=== PATIENT | male | born 1950 | race Caucasian/White ===

== ENCOUNTER 2018-01-20 01:23 | Emergency (ER) | payer MEDICARE ==
[~2018-01-20] VITALS: Ht 190.5 cm; Wt 145.1 kg
[~2018-01-20 01:23] MED LIST: AMLO10TA6 PO; ATOR80TA PO; CARV25TA PO; DIGO250T PO; FINA5TAB11 PO; FLUO-120 PO; FURO40TA5 PO; HYDR50TA8 PO; LISI-603 PO; METF1000 PO; METO-358 PO; METO5TAB7 PO; POTA20TA29 PO; SPIR25TA PO; TAMS0.4C34 PO
--- NOTE | 2018-01-20 01:35 | NUR ---
PT TO ER BED 12. BBRA 102 FROM HOME C/C ALTERED MORE THAN NORMAL. PER PT "RESPONDING SLOWER THAN NORMAL". BS IN FIELD 66. 250CC D10 GIVEN. PT AAOX4. PT PLACED IN GOWN AND ON COMPOSITE LAMINATOR. PT VSS/NAD NOTED/RESP EVEN UNLABORED/SKIN WARM AND DRY/DENIES N-V-D/AFEBRILE. AWAITING MD MUSA. AT BEDSIDE.
--- NOTE | 2018-01-20 01:58 | NUR ---
URINE SPECIMEN OBTAINED AND SENT TO THE LAB.
--- NOTE | 2018-01-20 02:01 | NUR ---
LAB AT BEDSIDE FOR DRAW.
--- NOTE | 2018-01-20 02:06 | NUR ---
EMT AT BEDSIDE FOR EKG.
[2018-01-20 02:25] LABS: APPEARANCE,URINE CLEAR (CLEAR); BILIRUBIN,URINE NEGATIVE (NEGATIVE); BLOOD, URINE 1+ Ery/uL (NEGATIVE); COLOR,URINE YELLOW (YELLOW); KETONES,URINE NEGATIVE (NEGATIVE); LEUKOCYTE ESTERASE ,URINE NEGATIVE (NEGATIVE); NITRITE, URINE NEGATIVE (NEGATIVE); PH,URINE 5.5 (5.0-8.0); PROTEIN,URINE 2+ mg/dl (NEGATIVE); UGLUCOSE TRACE mg/dL (NEGATIVE); UROBILINOGEN,URINE 0.2 EU/dL (0.2)
[2018-01-20 02:27] LABS: BASOPHILS % (AUTO) 0.3 % (0.0-2.0); EOSINOPHILS % (AUTO) 1.7 % (0.0-6.0); HEMATOCRIT 44 % (39-51); HEMOGLOBIN 14.7 g/dL (13.5-17.5); LYMPHOCYTES # (AUTO) 1.4 /CMM (0.8-4.8); LYMPHOCYTES % (AUTO) 10.1 % (20.0-44.0); MEAN CORPUSCULAR HGB CONC 33 g/dl (31.0-36.0); MEAN CORPUSCULAR VOLUME 98 fL (80-96); MONOCYTES # (AUTO) 1.2 /CMM (0.1-1.30); MONOCYTES % (AUTO) 8.4 % (2.0-12.0); NEUTROPHILS # (AUTO) 10.9 /CMM (1.8-8.9); NEUTROPHILS % (AUTO) 79.5 % (43.0-81.0); PLATELET COUNT (AUTO) 249 /CMM (150-450); RDW COEFFICIENT OF VARIATION 14.5 (11.5-15.0); RED BLOOD CELL COUNT(AUTO) 4.55 MIL/uL (4.5-6.0); WHITE BLOOD COUNT (AUTO) 13.7 K/uL (4.3-11.0)
[2018-01-20 02:32] LABS: BACTERIA,URINE Rare /HPF (None Seen); SQUAMOUS EPITHELIAL CELL,UR Rare /HPF (None Seen); WBC,URINE 0-2 /HPF (0-3)
[2018-01-20 02:39] LABS: INR 1.6 (0.87-1.13)
[2018-01-20 02:43] LABS: SERUM AMMONIA 3 umol/L (11-32)
[2018-01-20 02:58] LABS: ALANINE AMINOTRANSFERASE 26 U/L (12-78); ALBUMIN 3.7 g/dL (3.4-5.0); ALCOHOL, BLOOD < 3 mg/dL (0-0); ALKALINE PHOSPHATASE 125 U/L (46-116); ASPARTATE AMINOTRANSFERASE 19 U/L (15-37); BILIRUBIN,DIRECT 0.1 mg/dL (0.0-0.2); BILIRUBIN,TOTAL 0.4 mg/dL (0.2-1.0); CALCIUM, SERUM 9.3 mg/dL (8.5-10.1); CARBON DIOXIDE 25 mmol/L (21-32); CHLORIDE 100 mmol/L (98-107); CREATININE 1.1 mg/dL (0.6-1.3); GLUCOSE 120 mg/dL (74-106); POTASSIUM 4.2 mmol/L (3.5-5.1); SODIUM SERUM 136 mmol/L (136-145); TOTAL PROTEIN, SERUM 8.1 g/dL (6.4-8.2); UREA NITROGEN, BLOOD 13 mg/dL (7-18)
[2018-01-20 03:12] LABS: SALICYLATE 1.7 mg/dL (2.8-20.0)
[2018-01-20 03:14] LABS: THYROID STIMULATING HORMONE 4.209 uIU/mL (0.358-3.74)
[2018-01-20 03:15] LABS: TROPONIN I < 0.017 ng/mL (0.00-0.056)
--- NOTE | 2018-01-20 03:19 | NUR ---
PT AOX4 SPEAKING WITH AT BEDSIDE.
--- NOTE | 2018-01-20 03:36 | NUR ---
Patient discharged with to home in stable condition. Written and verbal after care instructions given. Patient verbalizes understanding of instruction. Patient is awake and alert to self, day, and place.
[2018-01-20 03:37] VITALS: BP 134/77
== END 2018-01-20 03:37 | disposition home or self-care (01) ==
LOC: ER 01:25
DX: E11.649 Type 2 diabetes mellitus with hypoglycemia without coma (principal); I48.91 Unspecified atrial fibrillation; D68.8 Other specified coagulation defects; E66.8 Other obesity; I10 Essential (primary) hypertension; Z79.84 Long term (current) use of oral hypoglycemic drugs; Z79.01 Long term (current) use of anticoagulants
CPT/HCPCS: 36415; 71045-TC; 80048-TC; 80076-TC; 81000-TC; 82140-TC; 82962-TC; 84443-TC; 84484-TC; 85025-TC; 85610-TC; A4606; G0480; Z7610

== ENCOUNTER 2019-04-27 13:12 | Inpatient (IN) | payer MEDICARE ==
[~2019-04-27] VITALS: Ht 190.5 cm; Wt 156.5 kg
[~2019-04-27 13:12] MED LIST changes: -AMLO10TA6 PO; +AMLO10TA7 PO
--- NOTE | 2019-04-27 13:15 | NUR ---
"[id number], FROM HOME, BILATERAL LOWER EXTREMITIES WOUND" PT AAOX4, -SOB, NAD NOTED, VSS, PENDING MD MUSA
[2019-04-27 14:19] LABS: BASOPHILS % (AUTO) 0.5 % (0.0-2.0); EOSINOPHILS % (AUTO) 5.1 % (0.0-6.0); HEMATOCRIT 31 % (39-51); HEMOGLOBIN 10.1 g/dL (13.5-17.5); LYMPHOCYTES # (AUTO) 0.7 /CMM (0.8-4.8); LYMPHOCYTES % (AUTO) 7.8 % (20.0-44.0); MEAN CORPUSCULAR HGB CONC 32 g/dl (31.0-36.0); MEAN CORPUSCULAR VOLUME 87 fL (80-96); MONOCYTES # (AUTO) 1.1 /CMM (0.1-1.30); MONOCYTES % (AUTO) 11.4 % (2.0-12.0); NEUTROPHILS % (AUTO) 75.2 % (43.0-81.0); PLATELET COUNT (AUTO) 337 /CMM (150-450); WHITE BLOOD COUNT (AUTO) 9.4 K/uL (4.3-11.0)
[2019-04-27 14:29] LABS: CALCIUM, SERUM 8.9 mg/dL (8.5-10.1); CARBON DIOXIDE 22 mmol/L (21-32); CHLORIDE 105 mmol/L (98-107); CREATININE 1.8 mg/dL (0.6-1.3); GLUCOSE 165 mg/dL (74-106); POTASSIUM 5.9 mmol/L (3.5-5.1); SODIUM SERUM 136 mmol/L (136-145); UREA NITROGEN, BLOOD 32 mg/dL (7-18)
[2019-04-27 14:36] LABS: ALANINE AMINOTRANSFERASE 23 U/L (12-78); ALBUMIN 2.6 g/dL (3.4-5.0); ALKALINE PHOSPHATASE 149 U/L (46-116); ASPARTATE AMINOTRANSFERASE 27 U/L (15-37); BILIRUBIN,DIRECT 0.2 mg/dL (0.0-0.2); BILIRUBIN,TOTAL 0.4 mg/dL (0.2-1.0)
--- NOTE | 2019-04-27 14:49 | NUR ---
REPORT FROM JAJA PATIENT HAS INR OF 4.5, DR. CHEN NOTIFIED.
--- NOTE | 2019-04-27 15:06 | NUR ---
CALLED [facility], PAGED PANEL
[2019-04-27 15:11] LABS: APPEARANCE,URINE Clear (CLEAR); BILIRUBIN,URINE Negative (NEGATIVE); BLOOD, URINE Trace-intact Ery/uL (NEGATIVE); COLOR,URINE Yellow (YELLOW); KETONES,URINE Negative (NEGATIVE); LEUKOCYTE ESTERASE ,URINE Negative (NEGATIVE); NITRITE, URINE Negative (NEGATIVE); PH,URINE 5.5 (5.0-8.0); PROTEIN,URINE 100 mg/dl (NEGATIVE); UGLUCOSE Negative (NEGATIVE); UROBILINOGEN,URINE 0.2 EU/dL (0.2)
[2019-04-27] MEDS ORDERED: METO25TA3 PO (15:25)
[2019-04-27] MEDS ORDERED: FAMO20TA8 PO (15:25)
[2019-04-27] MEDS ORDERED: INSU100I26 SQ (15:25)
[2019-04-27] MEDS ORDERED: INSU100C10 SQ (15:25)
[2019-04-27] MEDS ORDERED: BISA10SU11 RC (15:25)
[2019-04-27] MEDS ORDERED: INSU3INS8 SQ (15:25)
[2019-04-27] MEDS ORDERED: GLUC1KIT2 IJ (15:25)
[2019-04-27] MEDS ORDERED: EPOE200014 IJ (15:25)
[2019-04-27] MEDS ORDERED: MAGN400O6 PO (15:25)
[2019-04-27] MEDS ORDERED: PANT40TA2 PO (15:25)
[2019-04-27] MEDS ORDERED: MULT-439 PO (15:25)
[2019-04-27] MEDS ORDERED: ACET-868 PO (15:25)
[2019-04-27] MEDS ORDERED: HYDR-4384 PO (15:25)
[2019-04-27] MEDS ORDERED: ASPI-605 PO (15:25)
--- NOTE | 2019-04-27 15:26 | NUR ---
CALLED NURSING SUP FOR MEDSURG BED
[2019-04-27 15:32] LABS: BACTERIA,URINE None seen /HPF (None Seen); SQUAMOUS EPITHELIAL CELL,UR None Seen /HPF (None Seen)
[2019-04-27 15:33] LABS: MUCUS,URINE Rare /LPF (None Seen)
--- NOTE | 2019-04-27 15:41 | NUR ---
311 GIVEN. SHITAL IS RN
--- NOTE | 2019-04-27 15:48 | NUR ---
REPORT GIVEN TO SHITAL ÁLVAREZ
[2019-04-27 16:00] VITALS: BP 134/71
[2019-04-27 16:30] VITALS: BP 134/71
[2019-04-27] MEDS ORDERED: MORPHINE SULFATE INJ 2 MG/ML DISP.SYRIN IV PRN (16:30)
[2019-04-27] MEDS ORDERED: DEXTROSE 50%-WATER 50 ML DISP.SYRIN IV PRN (16:30)
[2019-04-27] MEDS ORDERED: MAG HYDROX/AL HYDROX/SIMETH 30 ML UDC PO PRN (16:30)
[2019-04-27] MEDS ORDERED: ONDANSETRON HCL/PF 4 MG/2 ML VIAL IVP PRN (16:30)
[2019-04-27] MEDS ORDERED: ZOLPIDEM TARTRATE 5 MG TABLET PO PRN (16:30)
[2019-04-27] MEDS ORDERED: HYDROCODONE/APAP 5/325MG 1 EACH TABLET PO PRN (16:30)
[2019-04-27] MEDS ORDERED: MAGNESIUM HYDROXIDE 30 ML UDC PO PRN (16:30)
[2019-04-27] MEDS ORDERED: ACETAMINOPHEN 325 MG TABLET PO PRN (16:30)
[2019-04-27] MEDS ORDERED: Z GUARD REMEDY 2 OZ OINT TP PRN (16:30)
[2019-04-27] MEDS ORDERED: BISACODYL SUPP (10 MG) 10 MG/SUPP.RECT SUPP.RECT RC PRN (16:30)
--- NOTE | 2019-04-27 16:30 | NUR ---
MS HOT PACKER NOTE PT ARRIVED TO MS UNIT VIA GURNEY IN STABLE CONDITION. PT IS A/O X4, AFEBRILE. RESPIRATIONS ARE EVEN AND UNLABORED, NOT IN ANY ACUTE DISTRESS NOTED. PUPILS ARE REACTIVE TO LIGHT, BILATERAL HAND BABCOCK TESTER ARE STRONG AND EQUAL. PT DENIES ANY PAIN AT THIS TIME, NO C/O SOB, N/V. ABDOMEN IS ROUND, SOFT AND NONDISTENDED, BOWEL SOUNDS ARE PRESENT IN ALL 4 QUADRANTS UPON AUSCULTATION. DENIES ANY BLADDER DISCOMFORT. SCABS AND ABRASIONS NOTED TO LLE, WOUND NOTED TO LEFT FOOT, SCABS TO RLE, SCRATCHES TO R ARM, REDNESS TO ABDOMINAL FOLD. PICTURES PLACED IN CHART. IV ACCESS TO RIGHT HAND G20 INTACT, NO INFILTRATION NOTED. DRESSING KEPT CLEAN AND DRY. SAFETY MEASURES ARE IN PLACE. DR. LEY MADE AWARE OF ADMISSION W/ ORDERS NOTED AND CARRIED OUT. INSTRUCTED PT TO USE CALL LIGHT WHEN ASSISTANCE IS NEEDED, CALL LIGHT IS LEFT WITHIN REACH. WILL MONITOR THROUGHOUT SHIFT FOR CONTINUITY OF CARE.
[2019-04-27] MEDS ORDERED: SODIUM POLYSTYRENE SULFONATE 15 G/60 ML BOTTLE PO ONE (17:00)
[2019-04-27] MEDS: BLOOD SUGAR DIAGNOSTIC 1 EACH STRIP VI SCH ×2 (17:44→21:18)
[2019-04-27] MEDS: *INSULIN REGULAR(HUMULIN R)HUM 100 UNIT/ML VIAL SQ PRN ×2 (17:45→21:45)
--- NOTE | 2019-04-27 18:49 | NUR ---
HOG SAWYER CLOSING NOTES ALL DUE MEDS GIVEN, NEEDS MET AND RENDERED. PT IS A/O X4, AFEBRILE. RESPIRATIONS ARE EVEN AND UNLABORED, NOT IN ANY ACUTE DISTRESS NOTED. PT DENIES ANY PAIN AT THIS TIME, NO C/O SOB, N/V. IV SITE TO R HAND INTACT, NO INFILTRATION NOTED. DRESSING KEPT CLEAN AND DRY. SAFETY MEASURES ARE IN PLACE. REMINDED PT TO USE CALL LIGHT WHEN ASSISTANCE IS NEEDED, CALL LIGHT IS LEFT WITHIN REACH. WILL ENDORSE TO NEXT SHIFT FOR CONTINUITY OF CARE.
--- NOTE | 2019-04-27 19:40 | NUR ---
MS RN NOTE: PATIENT RESTING IN BED, NO ACUTE DISTRESS NOTED. BREATHING EVEN AND UNLABORED, NO SOB NOTED. IV TO LEFT HAND IN PLACE. NO S/S OF HYPER/HYPOGLYCEMIA NOTED. BED LOCKED AND IN LOWEST POSITION, CALL LIGHT IN REACH. WILL CONTINUE TO MONITOR.
[2019-04-27 20:00] VITALS: BP 135/77
[2019-04-27] MEDS: FAMOTIDINE (20 MG) 20 MG TABLET PO SCH (21:18)
--- NOTE | 2019-04-27 22:00 | NUR ---
MS RN NOTE: PATIENT BLOOD SUGAR LEVEL 138MG/DL, PATIENT TO RECEIVE 2 UNITS OF INSULIN PER SLIDING SCALE. NO S/S OF HYPER/HYPOGLYCEMIA NOTED. WILL CONTINUE TO MONITOR.
[2019-04-28] MEDS: INSULIN REGULAR, HUMAN 100 UNIT/ML 3 ML VIAL SQ PRN ×2 (06:13→17:38)
--- NOTE | 2019-04-28 06:30 | NUR ---
MS RN NOTE: PATIENT RESTING IN BED, NO ACUTE DISTRESS NOTED. BREATHING EVEN AND UNLABORED, NO SOB NOTED. IV TO LEFT HAND IN PLACE. PATIENT BLOOD SUGAR LEVEL 141MG/DL, PATIENT TO RECEIVE 2 UNITS PER SLIDING SCALE, NO S/S OF HYPER/HYPOGLYCEMIA NOTED. BED LOCKED AND IN LOWEST POSITION, CALL LIGHT IN REACH. WILL ENDORSE TO DAY NURSE TO CONTINUE WITH PLAN OF CARE.
[2019-04-28 06:36] LABS: BASOPHILS % (AUTO) 0.5 % (0.0-2.0); EOSINOPHILS % (AUTO) 6.2 % (0.0-6.0); HEMATOCRIT 32 % (39-51); HEMOGLOBIN 10.3 g/dL (13.5-17.5); LYMPHOCYTES # (AUTO) 0.7 /CMM (0.8-4.8); LYMPHOCYTES % (AUTO) 8.8 % (20.0-44.0); MEAN CORPUSCULAR HGB CONC 32 g/dl (31.0-36.0); MEAN CORPUSCULAR VOLUME 86 fL (80-96); MONOCYTES # (AUTO) 0.7 /CMM (0.1-1.30); MONOCYTES % (AUTO) 9.2 % (2.0-12.0); NEUTROPHILS # (AUTO) 6.1 /CMM (1.8-8.9); NEUTROPHILS % (AUTO) 75.3 % (43.0-81.0); PLATELET COUNT (AUTO) 346 /CMM (150-450); RED BLOOD CELL COUNT(AUTO) 3.71 MIL/uL (4.5-6.0)
[2019-04-28] MEDS: BLOOD SUGAR DIAGNOSTIC 1 EACH STRIP VI SCH ×4 (06:41→21:05)
[2019-04-28 06:45] LABS: CALCIUM, SERUM 8.8 mg/dL (8.5-10.1); CREATININE 1.5 mg/dL (0.6-1.3); MAGNESIUM 1.8 mg/dL (1.8-2.4); POTASSIUM 5.6 mmol/L (3.5-5.1)
[2019-04-28 08:00] VITALS: BP 142/91
[2019-04-28] MEDS ORDERED: SODIUM POLYSTYRENE SULFONATE 15 G/60 ML BOTTLE PO ONE (08:00)
--- NOTE | 2019-04-28 08:00 | NUR ---
RN NOTES RECEIVED PATIENT IN THE BED A/O X3/4, NO ACUTE RESPIRATORY DISTRESS. PATIENT OBESE MALE WITH DISTENDED ABDOMEN, EDEMA ON LEFT LEG, MULTIPLE WOUNDS, AND DISCOLORATION LOWER BILATERAL LEGS, REDNESS ON ABDOMINAL FOLDS, SACRAL AND PERINEAL AREA REDNESS. SEEN BY WOUND NURSE ANDREEA. PATIENT ALSO HAS AN AMPUTEE OF RIGHT BIG TOE ON NWB ON BY SURGEON. ADMINISTERED SCHEDULED MEDICATION, V/S STABLE, IV ACCESS ON LEFT HAND INFUSED NS 250 MG BOLUS . NEEDS ATTENDED AND ANTICIPATED, CALL LIGHT WITHIN TO EACH, ASSIST PATIENT TURN AND REPOSTION Q 2 HR. ALSO SEEN BY HOSPITALIST Dr. SARGENT.
[2019-04-28] MEDS: FLUOXETINE HCL 20 MG CAPSULE PO SCH (09:26)
[2019-04-28] MEDS: PANTOPRAZOLE 40 MG TABLET.DR PO SCH (09:27)
[2019-04-28] MEDS: ATORVASTATIN 40 MG TABLET PO SCH (09:27)
[2019-04-28] MEDS: FAMOTIDINE (20 MG) 20 MG TABLET PO SCH ×2 (09:28→21:05)
[2019-04-28] MEDS: METOPROLOL SUCCINATE 25 MG TAB.SR.24H PO SCH (09:28)
[2019-04-28] MEDS: ASPIRIN EC 81 MG TABLET.DR PO SCH (09:28)
[2019-04-28] MEDS ORDERED: FUROSEMIDE 40 MG/4 ML VIAL IV ONE (09:30)
[2019-04-28] MEDS ORDERED: IV NS 0.9% 250 ML IV ONE (09:30)
--- NOTE | 2019-04-28 10:19 | NUR ---
WOUND CARE CONSULT: PT PRESENTS WITH RASHES TO ABDOMINAL/GROIN FOLDS AND INCONTINENCE ASSOCIATED SKIN DAMAGE TO BUTTOCKS, LEFT THIGH OPEN WOUND, LEFT FOOT WOUND, RT FOOT AMPUTATION SITES AND MULTIPLE DRY SCABS TO LOWER LEGS, DRY SCRATCH VITALE TO RT ARM, ALL PRESENT ON ADMISSION. RECOMMEND SURGICAL AND DPM CONSULTS. DR MARCUM NOTIFIED OF CONSULT REQUESTS. RECOMMENDATIONS MADE FOR RASHES AND SKIN IRRITATION ON BUTTOCKS. DISCUSSED WITH NURSING STAFF. DEFER TO SURGICAL/PODIATRY TEAMS FOR WOUNDS ON LOWER EXTREMITIES. WILL SEE PRN. PT DEMONSTRATES ABILITY TO ASSIST WITH TURNING AND REPOSITIONING IN BED. MD IN AGREEMENT WITH PLAN OF CARE. Addendum: 04/28/19 at 1022 by ANDREEA SILVER WNDNU Amended: Links added.
[2019-04-28] MEDS: AMLODIPINE BESYLATE 10 MG TABLET PO SCH (10:32)
[2019-04-28] MEDS: TAMSULOSIN 0.4 MG CAP.SR.24H PO SCH (10:33)
--- NOTE | 2019-04-28 11:37 | NUR ---
RN NOTES PATIENT SIGN AMA FOR DISCHARGE.
[2019-04-28] MEDS: CLOTRIMAZOLE 1% 15 GM TUBE TP SCH ×2 (12:04→17:36)
[2019-04-28] MEDS: *INSULIN REGULAR(HUMULIN R)HUM 100 UNIT/ML VIAL SQ PRN ×2 (12:06→21:35)
--- NOTE | 2019-04-28 12:40 | NUR ---
RN NOTES PATIENT GAS COMBUSTION ENGINEER CAME BUT REFUSED TAKE PATIENT HOME, UNABLE TO CARE PATIENT ANYMORE CASE MANAGEMENT AWARE OF AND LOOKING PLACEMENT [facility]LO[facility].
--- NOTE | 2019-04-28 13:18 | NUR ---
RN NOTES BS-167 MG/DL, COVERAGE GIVEN PATIENT TOLERATED LUNCH WELL. SEEN BY PT ASSIST TO SIT CHAIR, AND BACK TO THE BED, CONTINUED MONITORING.
--- NOTE | 2019-04-28 15:10 | NUR ---
RN NOTES DEBRIDEMENT DONE ON LEFT THIGH BY WOUND AMAURY DUARTE, PICTURE TAKEN.
[2019-04-28 16:00] VITALS: BP 141/91
--- NOTE | 2019-04-28 18:30 | NUR ---
rn notes bs-135 mg/dl coverage given, patient tolerated dinner well, administered scheduled medication, assist patient turn and reposition q 2 hr,patient state " I am depress and sad because wanted to go home". patient refused pain. call light within to reach. endorsed oncoming nurse follow plan of care.
[2019-04-28 20:00] VITALS: BP 137/98
--- NOTE | 2019-04-28 21:30 | NUR ---
MS RN NOTE: PATIENT BLOOD SUGAR LEVEL 147MG/DL, PATIENT TO RECEIVE 2 UNITS OF INSULIN PER SLIDING SCALE. NO S/S OF HYPER/HYPOGLYCEMIA NOTED. WILL CONTINUE TO MONITOR.
--- NOTE | 2019-04-29 06:10 | NUR ---
MS RN NOTE: PATIENT RESTING IN BED, NO ACUTE DISTRESS NOTED. BREATHING EVEN AND UNLABORED, NO SOB NOTED. IV TO LEFT HAND IN PLACE. PATIENT BLOOD SUGAR LEVEL 145MG/DL, PATIENT TO RECEIVE 2 UNITS PER SLIDING SCALE, NO S/S OF HYPER/HYPOGLYCEMIA NOTED. BED LOCKED AND IN LOWEST POSITION, CALL LIGHT IN REACH. WILL ENDORSE TO DAY NURSE TO CONTINUE WITH PLAN OF CARE.
[2019-04-29] MEDS: BLOOD SUGAR DIAGNOSTIC 1 EACH STRIP VI SCH ×4 (06:46→22:36)
[2019-04-29] MEDS: INSULIN REGULAR, HUMAN 100 UNIT/ML 3 ML VIAL SQ PRN ×2 (06:47→11:33)
[2019-04-29 07:04] LABS: BASOPHILS # (AUTO) 0.1 /CMM (0.0-0.2); BASOPHILS % (AUTO) 0.8 % (0.0-2.0); HEMATOCRIT 33 % (39-51); HEMOGLOBIN 10.8 g/dL (13.5-17.5); LYMPHOCYTES # (AUTO) 0.8 /CMM (0.8-4.8); LYMPHOCYTES % (AUTO) 10.8 % (20.0-44.0); MEAN CORPUSCULAR HGB CONC 33 g/dl (31.0-36.0); MEAN CORPUSCULAR VOLUME 85 fL (80-96); MONOCYTES # (AUTO) 0.6 /CMM (0.1-1.30); MONOCYTES % (AUTO) 8.5 % (2.0-12.0); NEUTROPHILS # (AUTO) 5.4 /CMM (1.8-8.9); NEUTROPHILS % (AUTO) 73.9 % (43.0-81.0); PLATELET COUNT (AUTO) 355 /CMM (150-450); RED BLOOD CELL COUNT(AUTO) 3.85 MIL/uL (4.5-6.0); WHITE BLOOD COUNT (AUTO) 7.3 K/uL (4.3-11.0)
[2019-04-29 07:19] LABS: ALBUMIN 2.6 g/dL (3.4-5.0); BILIRUBIN,TOTAL 0.9 mg/dL (0.2-1.0); CALCIUM, SERUM 8.7 mg/dL (8.5-10.1); CREATININE 1.3 mg/dL (0.6-1.3); MAGNESIUM 1.5 mg/dL (1.8-2.4); PHOSPHORUS 3.5 mg/dL (2.5-4.9); POTASSIUM 4.4 mmol/L (3.5-5.1)
--- NOTE | 2019-04-29 07:30 | NUR ---
MS RN OPENING NOTES RECEIVED PT IN BED, ASLEEP, EASILY AROUSED. A/O X4. TOLERATING RA, WITH NO ACUTE RESPIRATORY DISTRESS NOTED. PT DENIES ANY PAIN OR DISCOMFORT AT THIS MOMENT. PT DENIES ANY QUESTIONS OR CONCERNS AT THIS TIME. PIV TO LEFT HAND G20, FLUSHED WITH NS, INTACT AND OPERATIONAL. PT KEPT COMFORTABLE. CALL LIGHT KEPT WITHIN REACH. PT'S BED KEPT IN LOWEST LOCKED POSITION WITH SR X3. WILL CONTINUE PLAN OF CARE.
[2019-04-29] MEDS: PANTOPRAZOLE 40 MG TABLET.DR PO SCH (07:50)
[2019-04-29 08:00] VITALS: BP 149/95
[2019-04-29] MEDS: FLUOXETINE HCL 20 MG CAPSULE PO SCH (08:18)
[2019-04-29] MEDS: FAMOTIDINE (20 MG) 20 MG TABLET PO SCH ×2 (08:19→22:36)
[2019-04-29] MEDS: ATORVASTATIN 40 MG TABLET PO SCH (08:19)
[2019-04-29] MEDS: TAMSULOSIN 0.4 MG CAP.SR.24H PO SCH (08:19)
[2019-04-29] MEDS: ASPIRIN EC 81 MG TABLET.DR PO SCH (08:19)
[2019-04-29] MEDS: AMLODIPINE BESYLATE 10 MG TABLET PO SCH (08:20)
[2019-04-29] MEDS: METOPROLOL SUCCINATE 25 MG TAB.SR.24H PO SCH (08:20)
[2019-04-29] MEDS: CLOTRIMAZOLE 1% 15 GM TUBE TP SCH ×2 (08:23→16:21)
--- NOTE | 2019-04-29 08:55 | NUR ---
MS RN NOTES PT SEEN BY MD/AVRIL PT AWARE OF PLAN FOR DISCHARGE. AWAITING FOR PLACEMENT. CM INVOLVED.
[2019-04-29] MEDS: Magnesium 1GM/D5W 100ML PREMIX 100 ML IV SCH ×2 (12:00→13:12)
[2019-04-29 16:00] VITALS: BP 120/73
--- NOTE | 2019-04-29 16:02 | NUR ---
MS RN NOTES LIZBET/ADELAIDA CAME AND SPOKE TO THE PT REGARDING DISCHARGE PLANNING.
[2019-04-29] MEDS: *INSULIN REGULAR(HUMULIN R)HUM 100 UNIT/ML VIAL SQ PRN ×2 (17:51→22:41)
--- NOTE | 2019-04-29 19:15 | NUR ---
RN Notes Received patient awake, alert and oriented x4, on room air and tolerated well. Denies any pain and discomfort at this time. IV access on left hand patent and intact. Dressing on BLE intact. Awaiting for XRay. Safety measures and fall precaution in place with call light within reach. Will continue to monitor patient.
--- NOTE | 2019-04-29 19:21 | NUR ---
MS RN CLOSING NOTES PT IN BED, AWAKE. A/O X4. TOLERATING RA, WITH NO ACUTE RESPIRATORY DISTRESS NOTED. PT DENIES ANY PAIN OR DISCOMFORT AT THIS MOMENT. PIV TO LEFT HAND G20, FLUSHED WITH NS, INTACT AND OPERATIONAL. ALL NEEDS AND CARE ATTENDED. PT KEPT COMFORTABLE. CALL LIGHT KEPT WITHIN REACH. PT'S BED KEPT IN LOWEST LOCKED POSITION WITH SR X3. ENDORSED TO INCOMING [facility] NURSE FOR EUGENE.
[2019-04-29 20:00] VITALS: BP 132/74
[2019-04-29 22:00] VITALS: BP 132/74
[2019-04-30] MEDS: BLOOD SUGAR DIAGNOSTIC 1 EACH STRIP VI SCH ×4 (06:26→21:00)
[2019-04-30 06:28] LABS: CALCIUM, SERUM 8.9 mg/dL (8.5-10.1); CREATININE 1.2 mg/dL (0.6-1.3); MAGNESIUM 1.6 mg/dL (1.8-2.4); POTASSIUM 4.3 mmol/L (3.5-5.1)
[2019-04-30] MEDS: INSULIN REGULAR, HUMAN 100 UNIT/ML 3 ML VIAL SQ PRN ×2 (06:28→12:52)
--- NOTE | 2019-04-30 07:12 | NUR ---
RN Notes Patient awake, slept well overnight, denies pain and any discomfort. No significant change in condition noted. All needs attended. Endorsed to morning RN for continuity of care.
--- NOTE | 2019-04-30 07:18 | NUR ---
MS RN OPENING NOTE RECEIVED REPORT FROM [facility] SHIFT NURSE, PT AWAKE IN BED, ALERT AND ORIENTED X 4, ON ROOM AIR, SATURATING WELL, RESPIRATIONS EASY AND UNLABORED, NO SIGNS OF RESPIRATORY DISTRESS NOTED, DENIES ANY PAIN AT THIS TIME. IV SITE ON LEFT HAND G20 IS PATENT, INTACT, WITH SALINE LOCK. INTRODUCED SELF TO PT AND DISCUSSED PLAN OF CARE. BED IN LOW POSITION, LOCKED, CALL LIGHT WITHIN REACH.
[2019-04-30] MEDS: PANTOPRAZOLE 40 MG TABLET.DR PO SCH (07:58)
[2019-04-30 08:00] VITALS: BP 149/94
[2019-04-30 08:06] LABS: *SPE A/G RATIO 0.8 (0.7-1.7); *SPE ALBUMIN 2.7 g/dL (2.9-4.4); *SPE ALPHA-1-GLOBULIN 0.3 g/dL (0.0-0.4); *SPE ALPHA-2-GLOBULIN 0.8 g/dL (0.4-1.0); *SPE BETA GLOBULIN 1.2 g/dL (0.7-1.3); *SPE GLOBULIN, TOTAL 3.6 g/dL (2.2-3.9); *SPE M-SPIKE Not Observed g/dL (Not Observed); *SPEGAMMA GLOBULIN 1.3 g/dL (0.4-1.8)
[2019-04-30] MEDS: Magnesium 1GM/D5W 100ML PREMIX 100 ML IV SCH ×2 (08:29→09:46)
[2019-04-30] MEDS: TAMSULOSIN 0.4 MG CAP.SR.24H PO SCH (09:10)
[2019-04-30] MEDS: AMLODIPINE BESYLATE 10 MG TABLET PO SCH (09:11)
[2019-04-30] MEDS: METOPROLOL SUCCINATE 25 MG TAB.SR.24H PO SCH (09:11)
[2019-04-30] MEDS: FAMOTIDINE (20 MG) 20 MG TABLET PO SCH ×2 (09:11→20:45)
[2019-04-30] MEDS: ASPIRIN EC 81 MG TABLET.DR PO SCH (09:11)
[2019-04-30] MEDS: FLUOXETINE HCL 20 MG CAPSULE PO SCH (09:11)
[2019-04-30] MEDS: ATORVASTATIN 40 MG TABLET PO SCH (09:11)
[2019-04-30] MEDS: CLOTRIMAZOLE 1% 15 GM TUBE TP SCH ×2 (09:12→17:01)
[2019-04-30 14:07] LABS: PTH, INTACT 26 pg/mL (15-65)
[2019-04-30 15:51] VITALS: BP 139/70
--- NOTE | 2019-04-30 16:55 | NUR ---
CALLED [facility] FOR DR. SARGENT. SPOKE WITH DR. SARGENT REGARDING RESULTS OF FOOT XRAY REVEALING OSTEOMYELITIS. PER DR. KIDD HOLD DISCHARGE. CHARGE NURSE NOTIFIED. PT NOTIFIED.
[2019-04-30] MEDS: *INSULIN REGULAR(HUMULIN R)HUM 100 UNIT/ML VIAL SQ PRN ×2 (17:15→21:02)
--- NOTE | 2019-04-30 18:26 | NUR ---
MS RN CLOSING NOTE PT AWAKE IN BED, ALERT AND ORIENTED X 4, ON ROOM AIR, SATURATING WELL, NO SIGNS OF RESPIRATORY DISTRESS NOTED. IV SITE ON LEFT HAND INTACT, PATENT, WITH SALINE LOCK. PROVIDED SAFETY AND COMFORT TO PT THROUGHOUT SHIFT, ALL DUE MEDS GIVEN. WILL ENDORSE TO NOC SHIFT NURSE FOR EUGENE.
--- NOTE | 2019-04-30 19:25 | NUR ---
MS RN RECEIVE PT IN BED A/O X 3 STABLE, RESPIRATION EVEN AND UNLABORED, NO S/S OF DISTRESS. SAFETY MEASURES IN PLACE. WILL CONT TO MTR.
[2019-04-30 20:00] VITALS: BP 135/79
--- NOTE | 2019-05-01 06:00 | NUR ---
MS RN NO SIGNIFICANT CHANGES THROUGHOUT THE SHIFT. PT SLEPT WELL, AM CARE RENDERED, WOUND CARE ORDERED. KEPT CLEAN AND DRY AND COMFORTABLE. NEEDS ATTENDED AND ANTICIPATED. GOOD SKIN CARE AT ALL TIMES. OFFLOAD HEELS AND ELBOWS. REPOSITION Q2HR. SAFETY MEASURES AT ALL TIMES. ENDORSE TO THE NEXT SHIFT.
[2019-05-01] MEDS: BLOOD SUGAR DIAGNOSTIC 1 EACH STRIP VI SCH ×4 (06:15→21:24)
[2019-05-01] MEDS: INSULIN REGULAR, HUMAN 100 UNIT/ML 3 ML VIAL SQ PRN ×3 (06:17→17:23)
--- NOTE | 2019-05-01 07:34 | NUR ---
MS RN OPENING NOTE PATIENT IN BED RESTING COMFORTABLY. PATIENT BREATHING IS EVEN AND UNLABORED. PATIENT IN NO ACUTE DISTRESS. NO SOB NOTED. PATIENT VERBALIZED NEEDS, NEEDS AND CONCERNS ADDRESSED. HOB IS ELEVATED. PATIENT BED IS LOCKED AND IN LOWEST POSITION. CALL LIGHT WITHIN REACH. WILL CONTINUE TO MONITOR.
[2019-05-01 08:00] VITALS: BP 150/56
[2019-05-01 08:18] LABS: BASOPHILS # (AUTO) 0.1 /CMM (0.0-0.2); BASOPHILS % (AUTO) 0.8 % (0.0-2.0); HEMATOCRIT 36 % (39-51); HEMOGLOBIN 11.7 g/dL (13.5-17.5); LYMPHOCYTES # (AUTO) 0.9 /CMM (0.8-4.8); LYMPHOCYTES % (AUTO) 11.7 % (20.0-44.0); MEAN CORPUSCULAR HGB CONC 32 g/dl (31.0-36.0); MEAN CORPUSCULAR VOLUME 85 fL (80-96); MONOCYTES # (AUTO) 0.7 /CMM (0.1-1.30); MONOCYTES % (AUTO) 8.4 % (2.0-12.0); NEUTROPHILS # (AUTO) 5.9 /CMM (1.8-8.9); NEUTROPHILS % (AUTO) 74.1 % (43.0-81.0); PLATELET COUNT (AUTO) 362 /CMM (150-450); RED BLOOD CELL COUNT(AUTO) 4.22 MIL/uL (4.5-6.0)
[2019-05-01] MEDS: TAMSULOSIN 0.4 MG CAP.SR.24H PO SCH (08:23)
[2019-05-01] MEDS: PANTOPRAZOLE 40 MG TABLET.DR PO SCH (08:24)
[2019-05-01] MEDS: METOPROLOL SUCCINATE 25 MG TAB.SR.24H PO SCH (08:24)
[2019-05-01] MEDS: ATORVASTATIN 40 MG TABLET PO SCH (08:24)
[2019-05-01] MEDS: FLUOXETINE HCL 20 MG CAPSULE PO SCH (08:24)
[2019-05-01] MEDS: AMLODIPINE BESYLATE 10 MG TABLET PO SCH (08:24)
[2019-05-01] MEDS: FAMOTIDINE (20 MG) 20 MG TABLET PO SCH ×2 (08:24→21:21)
[2019-05-01] MEDS: ASPIRIN EC 81 MG TABLET.DR PO SCH (08:24)
[2019-05-01] MEDS: CLOTRIMAZOLE 1% 15 GM TUBE TP SCH ×2 (08:27→17:06)
[2019-05-01 08:35] LABS: CALCIUM, SERUM 9.2 mg/dL (8.5-10.1); CREATININE 1.1 mg/dL (0.6-1.3); POTASSIUM 4.4 mmol/L (3.5-5.1)
[2019-05-01] MEDS ORDERED: FEE PK DOSING 1 MIN EA MC ONE (15:33)
[2019-05-01 16:00] VITALS: BP_DIAS 65
[2019-05-01] MEDS ORDERED: PIPERACILLIN /TAZOBACTAM 3.375 G in IV D5W 50 ML IV ONE (16:00)
[2019-05-01] MEDS: VANCOMYCIN 1.5 GM in IV D5W 500 ML IV SCH (17:53)
--- NOTE | 2019-05-01 19:19 | NUR ---
MS RN RECEIVE PT AWAKE WATCHING TV IN BED A/O X 3 STABLE, RESPIRATION EVEN AND UNLABORED, NO S/S OF DISTRESS. SAFETY MEASURES IN PLACE. WILL CONT TO [facility] PT
--- NOTE | 2019-05-01 19:21 | NUR ---
MS RN CLOSING NOTE PATIENT IN BED RESTING COMFORTABLY. PATIENT IN NO ACUTE DISTRESS. NO SOB NOTED. PATIENT BREATHING IS EVEN AND UNLABORED. PATIENT HOB IS ELEVATED. PROVIDED WOUND CARE TO PATIENT. PATIENT EXTREMITIES OFFLOADED ON PILLOWS. PATIENT REPOSITIONED MUCH PATIENT WOULD ALLOW. ALL NURSING NEEDS MET. PATIENT VERBALIZED NEEDS, NEEDS AND CONCERNS ADDRESSED. PATIENT BED IS LOCKED AND IN LOWEST POSITION. CALL LIGHT WITHIN REACH. WILL ENDORSE CARE TO PM SHIFT FOR EUGENE. Addendum: 05/01/19 at 1952 by OZIEL FERREIRA RN ENDORSED TO TIRE BUILDING SUPERVISOR TO OBTAIN MEDICAL RECORDS FROM [facility] AND ENDORSE FOR NEXT AM SHIFT DUE TO MY SHIFT OFFICES WERE CLOSED WHEN CALLED.
[2019-05-01 20:00] VITALS: BP 123/71
[2019-05-01 20:59] VITALS: BP 123/71
[2019-05-01] MEDS: PIPERACILLIN /TAZOBACTAM 3.375 G in IV D5W 100 ML IV SCH (21:21)
[2019-05-01] MEDS: *INSULIN REGULAR(HUMULIN R)HUM 100 UNIT/ML VIAL SQ PRN (21:35)
[2019-05-02] MEDS: VANCOMYCIN 1.5 GM in IV D5W 500 ML IV SCH (04:13)
[2019-05-02] MEDS: PIPERACILLIN /TAZOBACTAM 3.375 G in IV D5W 100 ML IV SCH (05:27)
--- NOTE | 2019-05-02 06:04 | NUR ---
MS RN ASLEEP AND EASILY AWAKEN, STABLE CONDITION AND NOT IN DISTRESS, NURSING CARE RENDERED, WOUND CARE ORDERED. KEPT CLEAN AND DRY AND COMFORTABLE. NEEDS ATTENDED AND ANTICIPATED. ASSISTED REPOSITION Q2H. NO C/O OF PAIN. SLEPT WELL. SAFETY MEASURES AT ALL TIMES. ENDORSE TO THE NEXT SHIFT.
[2019-05-02] MEDS: BLOOD SUGAR DIAGNOSTIC 1 EACH STRIP VI SCH ×2 (06:31→12:10)
[2019-05-02] MEDS: INSULIN REGULAR, HUMAN 100 UNIT/ML 3 ML VIAL SQ PRN ×2 (06:35→12:25)
--- NOTE | 2019-05-02 07:30 | NUR ---
MS RN OPENING NOTES RECEIVED PATIENT IN BED RESTING COMFORTABLY IN MODERATE HIGH BACK REST. A/O X 4. PATIENT IN NO ACUTE DISTRESS. NO SOB NOTED AT THIS TIME. NOTED WITH RIGHT UPPER PICC LINE ON LEFT HAND #20, SL. PATENT AND INTACT. SAFETY MEASURES IN PLACE. BED IS LOCKED AND IN LOWEST POSITION. CALL LIGHT WITHIN REACH. WILL CONTINUE TO MONITOR.
[2019-05-02 08:00] VITALS: BP 137/89
[2019-05-02 08:02] LABS: CALCIUM, SERUM 8.7 mg/dL (8.5-10.1); CREATININE 1.1 mg/dL (0.6-1.3); POTASSIUM 4.6 mmol/L (3.5-5.1)
[2019-05-02] MEDS: ATORVASTATIN 40 MG TABLET PO SCH (08:44)
[2019-05-02] MEDS: PANTOPRAZOLE 40 MG TABLET.DR PO SCH (08:44)
[2019-05-02] MEDS: FLUOXETINE HCL 20 MG CAPSULE PO SCH (08:44)
[2019-05-02] MEDS: ASPIRIN EC 81 MG TABLET.DR PO SCH (08:44)
[2019-05-02] MEDS: AMLODIPINE BESYLATE 10 MG TABLET PO SCH (08:46)
[2019-05-02] MEDS: TAMSULOSIN 0.4 MG CAP.SR.24H PO SCH (08:46)
[2019-05-02] MEDS: FAMOTIDINE (20 MG) 20 MG TABLET PO SCH (08:46)
[2019-05-02] MEDS: METOPROLOL SUCCINATE 25 MG TAB.SR.24H PO SCH (08:46)
[2019-05-02] MEDS: CLOTRIMAZOLE 1% 15 GM TUBE TP SCH (08:50)
[2019-05-02] MEDS ORDERED: MUPIROCIN OINT 2% 22 GM TUBE TP SCH (09:00)
[2019-05-02] MEDS ORDERED: VANC1.5P20 IV (09:32)
[2019-05-02] MEDS ORDERED: PIPE3.379 IV (09:32)
[2019-05-02 16:00] VITALS: BP 122/82
--- NOTE | 2019-05-02 16:45 | NUR ---
RN DISCHARGED NOTES PATIENT DISCHARGED IN STABLE CONDITION. A/O X 4. ABLE TO MAKE NEEDS KNOWN. V/S TAKEN, STABLE AND RECORDED. PATIENT LEFT WITH IV ACCESS ON LEFT HAND #20 AND PICC LINE ON RIGHT UPPER ARM FOR CONTINUOUS ANTIBIOTIC TO [facility]. NAME ARM BAND REMOVED. ALL BELONGINGS CHECKED AND SIGNED. HEALTH TEACHINGS/DISCHARGED INSTRUCTIONS GIVEN AND VERBALIZED UNDERSTANDING. PATIENT WAS PICKED UP BY 2 AMBULANCE STAFF. PATIENT LEFT UNIT VIA GURNEY WITH NO ACUTE SIGNS OF DISTRESS. CHARGE NURSE AWARE OF DISCHARGED.
== END 2019-05-02 16:45 | DRG 40 ==
LOC: ER 13:13 → MED 16:05
PROVIDERS: ADMIT Internal Medicine; ATTEND Internal Medicine
PROC: 0JBM0ZZ Excision of Left Upper Leg Subcutaneous Tissue and Fascia, Open Approach (ICD-10-PCS; principal; 2019-04-27)
PROC: 0QBM0ZZ Excision of Left Tarsal, Open Approach (ICD-10-PCS; 2019-04-28)
DX: E11.42 Type 2 diabetes mellitus with diabetic polyneuropathy (principal); N17.0 Acute kidney failure with tubular necrosis; I13.0 Hypertensive heart and chronic kidney disease with heart failure and stage 1 through stage 4 chronic kidney disease, or unspecified chronic kidney disease; I50.32 Chronic diastolic (congestive) heart failure; L97.919 Non-pressure chronic ulcer of unspecified part of right lower leg with unspecified severity; L97.929 Non-pressure chronic ulcer of unspecified part of left lower leg with unspecified severity; M86.9 Osteomyelitis, unspecified; E87.1 Hypo-osmolality and hyponatremia; E11.69 Type 2 diabetes mellitus with other specified complication; N18.9 Chronic kidney disease, unspecified; I48.91 Unspecified atrial fibrillation; E11.22 Type 2 diabetes mellitus with diabetic chronic kidney disease; E11.621 Type 2 diabetes mellitus with foot ulcer; L97.509 Non-pressure chronic ulcer of other part of unspecified foot with unspecified severity; I25.10 Atherosclerotic heart disease of native coronary artery without angina pectoris; K21.9 Gastro-esophageal reflux disease without esophagitis; Z91.19 Patient's noncompliance with other medical treatment and regimen; Z79.899 Other long term (current) drug therapy; E78.5 Hyperlipidemia, unspecified; L30.4 Erythema intertrigo; Z89.422 Acquired absence of other left toe(s); Z89.411 Acquired absence of right great toe; E11.51 Type 2 diabetes mellitus with diabetic peripheral angiopathy without gangrene; E87.5 Hyperkalemia; N40.0 Benign prostatic hyperplasia without lower urinary tract symptoms; R29.6 Repeated falls; Z87.891 Personal history of nicotine dependence; E11.622 Type 2 diabetes mellitus with other skin ulcer
CPT/HCPCS: 36415; 36569; 71045-TC; 73630-TC; 76770-TC; 80048-TC; 80053-TC; 80061-TC; 80076-TC; 81000-TC; 82550-TC; 82962-TC; 83605-TC; 83735-TC; 83970; 84100-TC; 84155; 84165; 84484-TC; 85025-TC; 85730-TC; 87040-TC; 87070-TC; 87081-TC; 87086-TC; 97116-TC; 97530-TC; A6253; A6403; A6407; C1751; G0378; J1815; J1940; J2543; J3370; J3475; J7050; J7060

== ENCOUNTER 2020-07-17 22:27 | Inpatient (IN) | payer MEDICARE ==
[~2020-07-17] VITALS: Ht 190.5 cm; Wt 180.5 kg
[~2020-07-17 22:27] MED LIST changes: +ACET-868 PO; +AMLO-213 PO; -AMLO10TA7 PO; +ASPI-605 PO; +BISA10SU11 RC; -CARV25TA PO; -DIGO250T PO; +EPOE200014 IJ; +FAMO20TA8 PO; -FINA5TAB11 PO; -FLUO-120 PO; +FLUO20CA42 PO; -FURO40TA5 PO; +GLUC1KIT2 IJ; +HYDR-4384 PO; -HYDR50TA8 PO; +INSU100C10 SQ; +INSU100I26 SQ; +INSU3INS8 SQ; -LISI-603 PO; +MAGN400O6 PO; -METF1000 PO; -METO-358 PO; +METO25TA3 PO; -METO5TAB7 PO; +MULT-439 PO; +PANT40TA2 PO; +PIPE3.379 IV; -POTA20TA29 PO; -SPIR25TA PO; +VANC1.5P20 IV
--- NOTE | 2020-07-17 22:31 | NUR ---
PT AAOX4. BIBRA FROM HOME C/O GENARALIZED WEAKNESS X1 DAY. PT PLACED IN BED 6 ON MONITOR AND PULSE OX. PT WAS PLACED ON 2L NC. AT BEDSIDE FOR EVAL. AWAITING ORDERS.
--- NOTE | 2020-07-17 22:42 | NUR ---
LINE ESTABLISHED LH 18G, BLOOD DRAWN, SENT TO LAB.
[2020-07-17] MEDS ORDERED: FUROSEMIDE 40 MG/4 ML VIAL ONE (22:55)
--- NOTE | 2020-07-17 22:55 | NUR ---
CALLED FOR COVID SWAB.
[2020-07-17 22:58] LABS: BASOPHILS # (AUTO) 0.1 /CMM (0.0-0.2); BASOPHILS % (AUTO) 1.2 % (0.0-2.0); EOSINOPHILS % (AUTO) 3.1 % (0.0-6.0); HEMATOCRIT 35 % (39-51); HEMOGLOBIN 11.5 g/dL (13.5-17.5); LYMPHOCYTES # (AUTO) 0.4 /CMM (0.8-4.8); LYMPHOCYTES % (AUTO) 4.1 % (20.0-44.0); MEAN CORPUSCULAR HGB CONC 32 g/dl (31.0-36.0); MEAN CORPUSCULAR VOLUME 89 fL (80-96); MONOCYTES # (AUTO) 0.9 /CMM (0.1-1.30); MONOCYTES % (AUTO) 8.7 % (2.0-12.0); NEUTROPHILS # (AUTO) 8.2 /CMM (1.8-8.9); NEUTROPHILS % (AUTO) 82.9 % (43.0-81.0); PLATELET COUNT (AUTO) 256 /CMM (150-450); RED BLOOD CELL COUNT(AUTO) 3.95 MIL/uL (4.5-6.0); WHITE BLOOD COUNT (AUTO) 9.9 K/uL (4.3-11.0)
[2020-07-17] MEDS ORDERED: FUROSEMIDE 40 MG/4 ML VIAL IV ONE (23:00)
[2020-07-17 23:03] LABS: CALCIUM, SERUM 9.2 mg/dL (8.5-10.1); CARBON DIOXIDE 26 mmol/L (21-32); CHLORIDE 102 mmol/L (98-107); CREATININE 1.7 mg/dL (0.6-1.3); GLUCOSE 119 mg/dL (74-106); POTASSIUM 5.4 mmol/L (3.5-5.1); SODIUM SERUM 136 mmol/L (136-145); UREA NITROGEN, BLOOD 35 mg/dL (7-18)
--- NOTE | 2020-07-17 23:11 | NUR ---
CALLED LAB TO INNER TUBE INSERTER COVID SWAB.
--- NOTE | 2020-07-17 23:13 | NUR ---
RADIOLOGY AT BEDSIDE
[2020-07-17 23:16] LABS: ALANINE AMINOTRANSFERASE 27 U/L (12-78); ALBUMIN 3.2 g/dL (3.4-5.0); ALKALINE PHOSPHATASE 103 U/L (46-116); ASPARTATE AMINOTRANSFERASE 26 U/L (15-37); B-TYPE NATRIURETIC PEPTIDE 7359 PG/ML (0-125); BILIRUBIN,DIRECT 0.3 mg/dL (0.0-0.2); BILIRUBIN,TOTAL 0.7 mg/dL (0.2-1.0); TOTAL PROTEIN, SERUM 7.2 g/dL (6.4-8.2)
--- NOTE | 2020-07-17 23:42 | NUR ---
LAB CALLED REGARDING NEGATIVE COVID RESULT.
[2020-07-18] MEDS ORDERED: NITROGLYCERIN 0.4 MG/TAB BOTTLE SL PRN (00:30)
[2020-07-18] MEDS ORDERED: PHYTONADIONE 5 MG TABLET PO ONE (00:30)
[2020-07-18] MEDS ORDERED: ACETAMINOPHEN 325 MG TABLET PO PRN (01:00)
[2020-07-18] MEDS ORDERED: HYDROCODONE/APAP 5/325MG TABLET PO PRN (01:00)
[2020-07-18] MEDS ORDERED: DEXTROSE 50%-WATER 50 ML DISP.SYRIN IV PRN (01:00)
[2020-07-18] MEDS ORDERED: INSULIN REGULAR, HUMAN 100 UNIT/ML 10 ML VIAL IV ONE (01:00)
[2020-07-18] MEDS ORDERED: MAGNESIUM HYDROXIDE 30 ML UDC PO PRN (01:00)
[2020-07-18] MEDS ORDERED: BISACODYL SUPP (10 MG) 10 MG/SUPP.RECT SUPP.RECT RC PRN (01:00)
[2020-07-18] MEDS ORDERED: DEXTROSE 50%-WATER 50 ML DISP.SYRIN IVP ONE (01:00)
--- NOTE | 2020-07-18 01:01 | NUR ---
CALLED PHARMACY TO VERIFY THE ADMITTING ORDERS
--- NOTE | 2020-07-18 01:11 | NUR ---
US AT BEDSIDE
[2020-07-18 01:32] LABS: C-REACTIVE PROTEIN 1.4 mg/dL (0.0-0.9)
[2020-07-18] MEDS ORDERED: DEXTROSE 50%-WATER 50 ML DISP.SYRIN ONE ×3 (02:44→05:19)
[2020-07-18] MEDS ORDERED: PHYTONADIONE 5 MG TABLET ONE (02:44)
[2020-07-18] MEDS ORDERED: INSULIN REGULAR, HUMAN 100 UNIT/ML 10 ML VIAL ONE (02:44)
[2020-07-18 05:20] LABS: BASOPHILS % (AUTO) 0.3 % (0.0-2.0); EOSINOPHILS % (AUTO) 2.6 % (0.0-6.0); HEMATOCRIT 32 % (39-51); HEMOGLOBIN 10.3 g/dL (13.5-17.5); LYMPHOCYTES # (AUTO) 0.7 /CMM (0.8-4.8); LYMPHOCYTES % (AUTO) 7.3 % (20.0-44.0); MEAN CORPUSCULAR HGB CONC 33 g/dl (31.0-36.0); MEAN CORPUSCULAR VOLUME 90 fL (80-96); NEUTROPHILS # (AUTO) 7.3 /CMM (1.8-8.9); NEUTROPHILS % (AUTO) 78.8 % (43.0-81.0); PLATELET COUNT (AUTO) 228 /CMM (150-450); RED BLOOD CELL COUNT(AUTO) 3.51 MIL/uL (4.5-6.0); WHITE BLOOD COUNT (AUTO) 9.3 K/uL (4.3-11.0)
[2020-07-18 05:40] LABS: ALANINE AMINOTRANSFERASE 25 U/L (12-78); ALKALINE PHOSPHATASE 92 U/L (46-116); ASPARTATE AMINOTRANSFERASE 25 U/L (15-37); BILIRUBIN,TOTAL 0.7 mg/dL (0.2-1.0); CALCIUM, SERUM 8.8 mg/dL (8.5-10.1); CARBON DIOXIDE 26 mmol/L (21-32); CHLORIDE 103 mmol/L (98-107); CREATININE 1.7 mg/dL (0.6-1.3); GLUCOSE 84 mg/dL (74-106); MAGNESIUM 1.9 mg/dL (1.8-2.4); PHOSPHORUS 3.9 mg/dL (2.5-4.9); SODIUM SERUM 137 mmol/L (136-145); TOTAL PROTEIN, SERUM 6.6 g/dL (6.4-8.2); UREA NITROGEN, BLOOD 36 mg/dL (7-18)
[2020-07-18 05:56] LABS: CHOLESTEROL 96 mg/dL (<200); HDL CHOLESTEROL 55 mg/dL (40-60); LDL 36 mg/dL (0-99); THYROID STIMULATING HORMONE 3.868 uIU/mL (0.358-3.74); TRIGLYCERIDES 39 mg/dL (30-150)
[2020-07-18] MEDS: PANTOPRAZOLE 40 MG TABLET.DR PO SCH (08:00)
--- NOTE | 2020-07-18 08:00 | NUR ---
provided pt with breakfast. ate 80%.
--- NOTE | 2020-07-18 08:29 | NUR ---
bs 83
[2020-07-18] MEDS: BLOOD SUGAR DIAGNOSTIC 1 EACH STRIP IN SCH ×4 (08:30→21:18)
[2020-07-18] MEDS: ATORVASTATIN 40 MG TABLET PO SCH (08:41)
[2020-07-18] MEDS: TAMSULOSIN 0.4 MG CAP.SR.24H PO SCH (08:41)
[2020-07-18] MEDS: FUROSEMIDE 40 MG/4 ML VIAL IV SCH ×2 (08:41→21:07)
[2020-07-18] MEDS: AMLODIPINE BESYLATE 10 MG TABLET PO SCH (08:42)
[2020-07-18] MEDS: MULTIVITAMINS,THERAGRAN 1 UDTAB TABLET PO SCH (08:42)
[2020-07-18] MEDS: FLUOXETINE HCL 20 MG CAPSULE PO SCH (08:42)
[2020-07-18] MEDS: METOPROLOL SUCCINATE 25 MG TAB.SR.24H PO SCH (08:42)
[2020-07-18] MEDS ORDERED: FAMOTIDINE (20 MG) 20 MG TABLET PO SCH (09:00)
--- NOTE | 2020-07-18 11:33 | NUR ---
bs checked 132
--- NOTE | 2020-07-18 12:22 | NUR ---
provided pt with lunch
--- NOTE | 2020-07-18 13:06 | NUR ---
MEGGAN received a call from Miquel Capone [phone] providing this SW name of home health agency. [facility] provided this SW with the following: [facility] . Plan: MEGGAN will provide this information to Case Management team to assist in a safe and proper discharge when patient is medically cleared. SW remains available for all needs regarding this patient.
--- NOTE | 2020-07-18 16:45 | NUR ---
[facility] 325-1
--- NOTE | 2020-07-18 19:00 | NUR ---
report given to ghislaine wolf at [facility]
--- NOTE | 2020-07-18 19:40 | NUR ---
senior oracle pl sql developerassembler wire mesh gate notes Received Pt from ER Nurse HENRI Leija. Pt arrived at the unit with a gurney and ACLS protocol. Pt is alert and orientedX3. Respiration on 2 L NC. No SOB. No S/S of distress noted. IV site at L forearm# 18 is clean, intact and flushes well. Pt is on tele monitor showed SR at 65. Pt refused for skin assessment at this time. Will try again. Pt's belonging is checked by VINOD Jesus and placed at Pt's chart. Safety precautions is maintained. Reorient Pt to the room and the use of call light. Will continue to monitor.
--- NOTE | 2020-07-18 19:49 | NUR ---
transffered to [facility]
[2020-07-18 20:00] VITALS: BP 124/88
--- NOTE | 2020-07-18 20:00 | NUR ---
lumber tallier notes Pt is having ECHO at the bedside with Eduard from cardiology.
--- NOTE | 2020-07-18 21:07 | NUR ---
customs import specialist notes Administered furosemide 40 mg/iv push that is due at 1700. Pt arrived at the unit at 1935. Charge nurse is aware and informed.
[2020-07-18] MEDS: INSULIN GLARGINE, 100 UNIT/ML CARTRIDGE SQ SCH (21:26)
--- NOTE | 2020-07-18 21:27 | NUR ---
animal eviscerator notes Pt's blood sugar is 104. Held lantus 35 units per level ordered. Explained S/S of hypoglycemia and hyperglycemia. Pt verbalized understanding. Charge nurse is aware and informed. Will continue to monitor.
--- NOTE | 2020-07-18 21:29 | NUR ---
door trimmer notes Given snacks to Pt.
[2020-07-18] MEDS ORDERED: INSULIN GLARGINE,BASAGLAR 100 UNIT/ML INSULN.PEN SQ SCH (22:00)
[2020-07-19] VITALS: BP 130/89
--- NOTE | 2020-07-19 03:58 | NUR ---
ambulance mechanic notes Informed and notified Pt's VTE is 5. SHANNON Neri ordered lovenox 40 SQ/daily. Order carried out.
[2020-07-19 04:00] VITALS: BP 135/86
[2020-07-19] MEDS ORDERED: ENOXAPARIN SODIUM 40 MG/0.4 ML DISP.SYRIN SQ SCH (04:30)
--- NOTE | 2020-07-19 04:56 | NUR ---
ssrs developer notes Pt's complaining of itchy throat and requesting lozenge. Informed TEA ROOM MANAGER regarding itchy throat. TEA ROOM MANAGER ordered lozenge cepacol 1 oz/Q4hr/PRN. Order carried out.
[2020-07-19] MEDS ORDERED: MENTHOL/CETYLPYRD (CEPACOL) 1 LOZ LOZENGE PO PRN (05:00)
[2020-07-19 05:58] LABS: BILIRUBIN,URINE NEGATIVE (NEGATIVE); BLOOD, URINE NEGATIVE Ery/uL (NEGATIVE); COLOR,URINE YELLOW (YELLOW); LEUKOCYTE ESTERASE ,URINE NEGATIVE (NEGATIVE); NITRITE, URINE NEGATIVE (NEGATIVE); PH,URINE 5.5 (5.0-8.0); PROTEIN,URINE 30 mg/dl (NEGATIVE); UGLUCOSE NEGATIVE (NEGATIVE); UROBILINOGEN,URINE 0.2 EU/dL (0.2)
[2020-07-19 06:08] LABS: BACTERIA,URINE None seen /HPF (None Seen); MUCUS,URINE Few /LPF (None Seen); RBC,URINE 0-2 /HPF (0-2); SQUAMOUS EPITHELIAL CELL,UR Rare /HPF (None Seen); URINE AMORPHOUS URATE Few /HPF (None Seen); WBC,URINE 0-2 /HPF (0-3)
[2020-07-19 06:15] LABS: CREATININE, URINE 103.1 MG/DL (30.0-125.0); URINE TOTAL PROTEIN 71.7 mg/dL (0-11.9)
[2020-07-19 06:21] LABS: EOSINOPHIL,URINE None Seen
[2020-07-19 06:39] LABS: BASOPHILS % (AUTO) 0.4 % (0.0-2.0); EOSINOPHILS % (AUTO) 2.5 % (0.0-6.0); HEMATOCRIT 32 % (39-51); HEMOGLOBIN 10.3 g/dL (13.5-17.5); LYMPHOCYTES # (AUTO) 0.5 /CMM (0.8-4.8); LYMPHOCYTES % (AUTO) 5.5 % (20.0-44.0); MEAN CORPUSCULAR HGB CONC 32 g/dl (31.0-36.0); MEAN CORPUSCULAR VOLUME 91 fL (80-96); MONOCYTES # (AUTO) 0.8 /CMM (0.1-1.30); MONOCYTES % (AUTO) 9.4 % (2.0-12.0); NEUTROPHILS # (AUTO) 6.8 /CMM (1.8-8.9); NEUTROPHILS % (AUTO) 82.2 % (43.0-81.0); PLATELET COUNT (AUTO) 241 /CMM (150-450); RED BLOOD CELL COUNT(AUTO) 3.56 MIL/uL (4.5-6.0); WHITE BLOOD COUNT (AUTO) 8.3 K/uL (4.3-11.0)
[2020-07-19] MEDS: BLOOD SUGAR DIAGNOSTIC 1 EACH STRIP IN SCH ×4 (07:03→22:01)
[2020-07-19 07:08] LABS: ALANINE AMINOTRANSFERASE 24 U/L (12-78); ALKALINE PHOSPHATASE 95 U/L (46-116); ASPARTATE AMINOTRANSFERASE 24 U/L (15-37); CARBON DIOXIDE 24 mmol/L (21-32); CHLORIDE 102 mmol/L (98-107); CREATININE 1.8 mg/dL (0.6-1.3); GLUCOSE 153 mg/dL (74-106); MAGNESIUM 2.2 mg/dL (1.8-2.4); PHOSPHORUS 4.6 mg/dL (2.5-4.9); POTASSIUM 5.4 mmol/L (3.5-5.1); SODIUM SERUM 136 mmol/L (136-145); TOTAL PROTEIN, SERUM 6.8 g/dL (6.4-8.2); UREA NITROGEN, BLOOD 46 mg/dL (7-18)
[2020-07-19] MEDS: INSULIN REGULAR, HUMAN 100 UNIT/ML 3 ML VIAL SQ PRN ×3 (07:15→17:56)
[2020-07-19 07:24] LABS: CREATINE KINASE, TOTAL 191 U/L (39-308); THYROID STIMULATING HORMONE 3.046 uIU/mL (0.358-3.74)
[2020-07-19 07:27] LABS: BILIRUBIN,TOTAL 0.6 mg/dL (0.2-1.0); CALCIUM, SERUM 8.7 mg/dL (8.5-10.1)
--- NOTE | 2020-07-19 07:33 | NUR ---
DIRECTOR AUDIENCE MARKETING OPENING NOTES RECEIVED PT AWAKE IN BED IN NO ACUTE SIGNS OF DISTRESS. HOB ELEVATED. A/O X4. ABLE TO MAKE NEEDS KNOWN, DENIES PAIN OR ANY DISCOMFORTS AT THIS TIME. ON SUPPLEMENTAL 02 VIA N/C AT 2LPM, TOLERATING WELL, BREATHING ARE EVEN AND UNLABORED. TELE-MONITOR SHOWS CURRENT READING OF A-FIB CONTROLLED WITH HR ON THE 80'S, NO C/O CARDIAC DISTRESS VOICED AT THIS TIME. IV ACCESS ON LFA G#18 INTACT, PATENT AND FLUSHES WELL. SAFETY MEASURES IN PLACE: BED IN LOWEST LOCKED POSITION WITH SR UP X2. CALL LIGHT W/IN EASY REACH. WILL CONTINUE TO MONITOR PT ACCORDINGLY.
[2020-07-19 08:00] VITALS: BP_SYST 113; BP_SYST 134; BP_DIAS 66; BP_DIAS 90
[2020-07-19] MEDS: PANTOPRAZOLE 40 MG TABLET.DR PO SCH (08:10)
--- NOTE | 2020-07-19 08:43 | NUR ---
software qa manager closing notes Patient in bed resting comfortably. Patient breathing even and unlabored with no signs of SOB or acute respiratory distress. Safety measure is maintained, bed is in the lowest level, bed is locked, alarm is on, side rails x2 are up, and call light is within reach. Endorsed continuity of care to morning nurse.
[2020-07-19] MEDS: MULTIVITAMINS,THERAGRAN 1 UDTAB TABLET PO SCH (09:32)
[2020-07-19] MEDS: ATORVASTATIN 40 MG TABLET PO SCH (09:33)
[2020-07-19] MEDS: METOPROLOL SUCCINATE 25 MG TAB.SR.24H PO SCH (09:34)
[2020-07-19] MEDS: AMLODIPINE BESYLATE 10 MG TABLET PO SCH (09:34)
[2020-07-19] MEDS: FLUOXETINE HCL 20 MG CAPSULE PO SCH (09:34)
[2020-07-19] MEDS: TAMSULOSIN 0.4 MG CAP.SR.24H PO SCH (09:35)
[2020-07-19] MEDS: FUROSEMIDE 40 MG/4 ML VIAL IV SCH (09:51)
--- NOTE | 2020-07-19 10:17 | NUR ---
tallow refiner Notes Pt seen by Tian Bertrand, informed him that pt remains with high INR 7.72. He order to hold Lovenox for now. Will continue to monitor
[2020-07-19 16:00] VITALS: BP 121/68
--- NOTE | 2020-07-19 18:55 | NUR ---
DEVELOPMENT REPRESENTATIVE CLOSING NOTES PT AWAKE IN BED IN NO ACUTE SIGNS OF DISTRESS. HOB ELEVATED. A/O X4. ABLE TO MAKE NEEDS KNOWN. ON SUPPLEMENTAL 02 VIA N/C AT 3LPM, TOLERATING WELL, BREATHING ARE EVEN AND UNLABORED. TELE-MONITOR SHOWS CURRENT READING OF A-FIB CONTROLLED WITH HR ON THE 80'S, NO C/O CARDIAC DISTRESS VOICED AT THIS TIME. IV ACCESS ON LFA G#18 INTACT, PATENT AND FLUSHES WELL. SAFETY MEASURES IN PLACE: BED IN LOWEST LOCKED POSITION WITH SR UP X2. CALL LIGHT W/IN EASY REACH. WILL WILL ENDORSE PLAN TO NEXT ONCOMING NURSE.
--- NOTE | 2020-07-19 19:10 | NUR ---
CARTRIDGE BELT PUNCHER OPENING NOTES RECEIVED PATIENT IN BED AWAKE ALERT AND ORIENTED X 3-4 ON 2 L VIA NC TOLERATING WELL ,RESPIRATIONS EVEN AND UNLABORED WITH EQUAL RISE AND FALL OF CHEST, DENIES ANY PAIN OR DISCOMFORT AT THIS TIME, IV SITE TO LEFT ARM#18 G INTACT AND PATENT, NO REDNESS, NO INFILTRATION PRESENT, ON MAINTENANCE MGR, A.FIB 75. URINAL AT BEDSIDE, PATIENT AWARE WE NEEDS TO CLOSELY MONITOR. ORIENTED TO STAFF AND CALL LIGHT AND KEPT WITHIN REACH, SAFETY PRECAUTIONS RENDERED LOW BED AND LOCKED, ALL NEEDS ATTENDED AT THIS TIME, WILL CONTINUE TO MONITOR AND ATTEND TO NEEDS.
[2020-07-19] MEDS: FUROSEMIDE 100 MG in IV NS 0.9% 90 ML IV PRN (19:45)
[2020-07-19 20:00] VITALS: BP 127/82
--- NOTE | 2020-07-19 21:49 | NUR ---
rn informatics notes lasix iv at 5mg/hr was started/ hung at 194 by AM nurse. bag signed and dated 07/19/20 at 1945 by previous AM nurse.
[2020-07-19] MEDS: INSULIN GLARGINE, 100 UNIT/ML CARTRIDGE SQ SCH (22:03)
[2020-07-20] VITALS (7 sets, daily range): BP systolic 112–142; BP diastolic 67–85
[2020-07-20] MEDS: FUROSEMIDE 100 MG in IV NS 0.9% 90 ML IV PRN ×2 (05:21→20:29)
[2020-07-20] MEDS: BLOOD SUGAR DIAGNOSTIC 1 EACH STRIP IN SCH ×4 (06:12→21:11)
[2020-07-20] MEDS: INSULIN REGULAR, HUMAN 100 UNIT/ML 3 ML VIAL SQ PRN ×3 (06:14→18:33)
--- NOTE | 2020-07-20 06:52 | NUR ---
ELECTRIC DRILL OPERATOR CLOSING NOTES PATIENT IN BED AWAKE ALERT AND ORIENTED X 3-4 ON 3 L VIA NC TOLERATING WELL ,RESPIRATIONS EVEN AND UNLABORED WITH EQUAL RISE AND FALL OF CHEST, DENIES ANY PAIN OR DISCOMFORT AT THIS TIME, IV SITE TO LEFT ARM#18 G INTACT AND PATENT, NO REDNESS, NO INFILTRATION PRESENT, ON DESIGN/ANIMATION INSTRUCTOR, A.FIB 68. URINAL AT BEDSIDE TOTAL OUTPUT FOR SHIFT 800 , PT ONLY DRANK ABOUT 100-200 CC THIS SHIFT, LASIX IV ORDERED RUNNING AT 5MG/HR, ORIENTED TO STAFF AND CALL LIGHT AND KEPT WITHIN REACH, SAFETY PRECAUTIONS RENDERED LOW BED AND LOCKED, ALL NEEDS ATTENDED AT THIS TIME, WILL CONTINUE TO MONITOR AND ATTEND TO NEEDS AND ENDORSE TO NEXT SHIFT, PATIENT DID NOT WANT TO REMOVE SOCKS OR BOTTOM FACILITY SHEET FOR PULL UP. UNABLE TO ASSESS SKIN.
[2020-07-20 08:07] LABS: T3, FREE 1.6 pg/mL (2.0-4.4)
--- NOTE | 2020-07-20 08:16 | NUR ---
FARM GENERAL MANAGER OPENING NOTE PATIENT IS IN BED RESTING COMFORTABLY. PATIENT IS IN NO ACUTE DISTRESS. PATIENT IS ON NC ON 2L OXYGEN. PATIENTS BREATHING IS EVEN AND UNLABORED. DENIES PAIN AT THIS TIME. PATIENT IS ON [facility] NURSE READING AFIB 72. PATIENT BED ALARM IS ON. SAFETY PRECAUTION IN PLACE. HOB ELEVATED. PATIENTS BED IS LOCKED IN THE LOWEST POSITION. CALL LIGHT WITHIN REACH. WILL CONTINUE TO MONITOR.
[2020-07-20 08:21] LABS: BASOPHILS % (AUTO) 0.3 % (0.0-2.0); HEMATOCRIT 32 % (39-51); HEMOGLOBIN 10.2 g/dL (13.5-17.5); LYMPHOCYTES # (AUTO) 0.6 /CMM (0.8-4.8); LYMPHOCYTES % (AUTO) 7.5 % (20.0-44.0); MEAN CORPUSCULAR HGB CONC 32 g/dl (31.0-36.0); MEAN CORPUSCULAR VOLUME 91 fL (80-96); MONOCYTES # (AUTO) 0.9 /CMM (0.1-1.30); NEUTROPHILS # (AUTO) 6.2 /CMM (1.8-8.9); NEUTROPHILS % (AUTO) 79.2 % (43.0-81.0); PLATELET COUNT (AUTO) 229 /CMM (150-450); RED BLOOD CELL COUNT(AUTO) 3.48 MIL/uL (4.5-6.0); WHITE BLOOD COUNT (AUTO) 7.8 K/uL (4.3-11.0)
[2020-07-20 08:32] LABS: CALCIUM, SERUM 8.6 mg/dL (8.5-10.1); CARBON DIOXIDE 26 mmol/L (21-32); CHLORIDE 101 mmol/L (98-107); CREATININE 1.8 mg/dL (0.6-1.3); GLUCOSE 179 mg/dL (74-106); POTASSIUM 4.9 mmol/L (3.5-5.1); SODIUM SERUM 134 mmol/L (136-145); UREA NITROGEN, BLOOD 52 mg/dL (7-18)
[2020-07-20 09:08] LABS: PTH, INTACT 39 pg/mL (15-65)
[2020-07-20] MEDS: ATORVASTATIN 40 MG TABLET PO SCH (09:08)
[2020-07-20] MEDS: PANTOPRAZOLE 40 MG TABLET.DR PO SCH (09:08)
[2020-07-20] MEDS: FLUOXETINE HCL 20 MG CAPSULE PO SCH (09:09)
[2020-07-20] MEDS: TAMSULOSIN 0.4 MG CAP.SR.24H PO SCH (09:09)
[2020-07-20] MEDS: MULTIVITAMINS,THERAGRAN 1 UDTAB TABLET PO SCH (09:09)
[2020-07-20] MEDS: METOPROLOL SUCCINATE 25 MG TAB.SR.24H PO SCH (09:11)
[2020-07-20] MEDS: AMLODIPINE BESYLATE 10 MG TABLET PO SCH (09:12)
--- NOTE | 2020-07-20 11:39 | NUR ---
WOUND CARE CONSULT: PT PRESENTS WITH RASHES AND REDNESS/MOISTURE ASSOCIATED SKIN BREAKDOWN TO ABDOMINAL/GROIN FOLDS WITH ODOR AND LEFT LOWER LEG WOUND, PRESENT ON ADMISSION. DR MARCUM AND DR SYED NOTIFIED OF SURGICAL AND DPM CONSULT REQUESTS. RECOMMENDATIONS MADE FOR SKIN PROTECTION. [facility] AIR BED ORDERED. IN AGREEMENT WITH PLAN OF CARE. Addendum: 07/20/20 at 1141 by ANDREEA SILVER WNDNU Amended: Links added.
--- NOTE | 2020-07-20 11:44 | NUR ---
COMPUTER TRAINING SPECIALIST NOTES RECEIVED ORDER FROM DR. MARSHALL TO INCREASE LASIX INFUSION TO 10 MG/HR, NOTED AND CARRIED OUT.
[2020-07-20] MEDS: Z GUARD REMEDY 2 OZ OINT TP PRN (13:36)
[2020-07-20] MEDS: Z GUARD REMEDY 2 OZ OINT TP SCH (13:44)
[2020-07-20] MEDS ORDERED: AMMONIUM LACTATE 227 GM BOTTLE TP SCH (17:00)
[2020-07-20] MEDS: AMMONIUM LACTATE 227 GM BOTTLE TP SCH (18:40)
[2020-07-20 19:13] LABS: CALCIUM, SERUM 8.7 mg/dL (8.5-10.1); CARBON DIOXIDE 28 mmol/L (21-32); CHLORIDE 100 mmol/L (98-107); CREATININE 1.8 mg/dL (0.6-1.3); GLUCOSE 155 mg/dL (74-106); SODIUM SERUM 133 mmol/L (136-145); UREA NITROGEN, BLOOD 55 mg/dL (7-18)
--- NOTE | 2020-07-20 19:15 | NUR ---
CLEANERS OPENING NOTES RECEIVED PATIENT IN BED AWAKE ALERT AND ORIENTED X 3-4 ON 3 L VIA NC TOLERATING WELL ,RESPIRATIONS EVEN AND UNLABORED WITH EQUAL RISE AND FALL OF CHEST, DENIES ANY PAIN OR DISCOMFORT AT THIS TIME, IV SITE TO LEFT ARM#18 G INTACT AND PATENT, NO REDNESS, NO INFILTRATION PRESENT, LASIX IV ORDERED RUNNING AT 10MG/HR, ON SITE LEASING AGENT, A.FIB 70. URINAL AT BEDSIDE AND WITHIN REACH , ORIENTED TO STAFF AND CALL LIGHT AND KEPT WITHIN REACH, SAFETY PRECAUTIONS RENDERED LOW BED AND LOCKED, ALL NEEDS ATTENDED AT THIS TIME, WILL CONTINUE TO MONITOR AND ATTEND TO NEEDS ,PATIENT DOES NOT WANT TO REMOVE BOTTOM FACILITY SHEET FOR PULL UP. REMAINS COMFORTABLE AT THIS.
--- NOTE | 2020-07-20 19:26 | NUR ---
TIPPLE OILER CLOSING NOTE PATIENT IS IN BED RESTING COMFORTABLE. PATIENT IN NO ACUTE DISTRESS. PATIENT IS ON 2L OXYGEN ON NC. PATIENTS BREATHING IS EVEN AND UNLABORED. HOB ELEVATED. PATIENT IS ON SLOTTER OPERATOR HELPER AFIB 74. PATIENT KEPT CLEAN, DRY COMFORTABLE THROUGHOUT THE SHIFT. PATIENT NEEDS ADDRESSED. PATIENT BED ALARM IS ON. BED IS LOCKED AND IN THE LOWEST POSITION. CALL LIGHT WITHIN REACH. ENDORSE TO THE PHYSICIAN SURGEON NURSE FOR EUGENE.
[2020-07-20] MEDS: MUPIROCIN OINT 2% 22 GM TUBE NS SCH (20:28)
[2020-07-20] MEDS: CLOTRIMAZOLE/BETAMETASONE DIPROPIONATE 15 GM TUBE TP SCH (20:29)
[2020-07-20] MEDS: INSULIN GLARGINE, 100 UNIT/ML CARTRIDGE SQ SCH (21:11)
--- NOTE | 2020-07-20 21:12 | NUR ---
SPEECH AND HEARING CLINIC DIRECTOR NOTES ACCUCHECK 115 PATIENT STATED HE DIDNT EAT MUCH TODAY SO HE WILL HOLD OFF ON THE LANTUS.
[2020-07-21] VITALS: BP_SYST 124; BP_SYST 126; BP_DIAS 67; BP_DIAS 82
[2020-07-21 04:00] VITALS: BP 124/72
[2020-07-21 06:06] LABS: *SPE A/G RATIO 0.9 (0.7-1.7); *SPE ALBUMIN 2.9 g/dL (2.9-4.4); *SPE ALPHA-1-GLOBULIN 0.3 g/dL (0.0-0.4); *SPE BETA GLOBULIN 1.1 g/dL (0.7-1.3); *SPE GLOBULIN, TOTAL 3.3 g/dL (2.2-3.9); *SPE M-SPIKE Not Observed g/dL (Not Observed)
[2020-07-21] MEDS: INSULIN REGULAR, HUMAN 100 UNIT/ML 3 ML VIAL SQ PRN ×3 (06:13→16:34)
[2020-07-21] MEDS: BLOOD SUGAR DIAGNOSTIC 1 EACH STRIP IN SCH ×4 (06:13→22:20)
[2020-07-21 07:26] LABS: BASOPHILS % (AUTO) 0.6 % (0.0-2.0); EOSINOPHILS % (AUTO) 3.1 % (0.0-6.0); HEMATOCRIT 32 % (39-51); HEMOGLOBIN 10.4 g/dL (13.5-17.5); LYMPHOCYTES # (AUTO) 0.6 /CMM (0.8-4.8); LYMPHOCYTES % (AUTO) 7.6 % (20.0-44.0); MEAN CORPUSCULAR HGB CONC 33 g/dl (31.0-36.0); MEAN CORPUSCULAR VOLUME 90 fL (80-96); MONOCYTES # (AUTO) 0.8 /CMM (0.1-1.30); MONOCYTES % (AUTO) 10.2 % (2.0-12.0); NEUTROPHILS # (AUTO) 6.3 /CMM (1.8-8.9); NEUTROPHILS % (AUTO) 78.5 % (43.0-81.0); PLATELET COUNT (AUTO) 218 /CMM (150-450); RED BLOOD CELL COUNT(AUTO) 3.53 MIL/uL (4.5-6.0)
--- NOTE | 2020-07-21 07:30 | NUR ---
SEISMIC PROSPECTING OBSERVER HELPER NOTES PATIENT RECEIVED IN BED RESTING COMFORTABLY, ALERT AND ORIENTED X 3-4, ON NASAL CANNULA, 3 LITERS, WITH EVEN NON-LABORED BREATHING. ON TELE MONITOR, CONTROLLED A-FIB 70'S. PATIENT SKIN WARM AND DRY TO TOUCH. PATIENT PRESENTING WITH NO PAIN OR DISCOMFORT AT THIS TIME. SAFETY PRECAUTIONS IMPLEMENTED WITH BED LOCKED, BILATERAL SIDE RAILS UP, BED ALARM ON, BED IN TH LOWEST POSITION, AND CALL LIGHT WITHIN EASY REACH. WILL CONTINUE TO MONITOR PATIENT.
[2020-07-21 07:36] LABS: CALCIUM, SERUM 9.1 mg/dL (8.5-10.1); CARBON DIOXIDE 28 mmol/L (21-32); CHLORIDE 100 mmol/L (98-107); CREATININE 1.5 mg/dL (0.6-1.3); GLUCOSE 119 mg/dL (74-106); MAGNESIUM 2.2 mg/dL (1.8-2.4); POTASSIUM 4.8 mmol/L (3.5-5.1); SODIUM SERUM 134 mmol/L (136-145); UREA NITROGEN, BLOOD 52 mg/dL (7-18)
--- NOTE | 2020-07-21 07:54 | NUR ---
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 URINAL AT BEDSIDE AND WITHIN REACH , CALL LIGHT KEPT WITHIN REACH, SAFETY PRECAUTIONS RENDERED LOW BED AND LOCKED, ALL NEEDS ATTENDED AT THIS TIME, WILL CONTINUE TO MONITOR AND ATTEND TO NEEDS . REMAINS COMFORTABLE AT THIS. WILL ENDORSE TO NEXT SHIFT.
[2020-07-21 08:00] VITALS: BP 129/79
[2020-07-21] MEDS: ATORVASTATIN 40 MG TABLET PO SCH (09:12)
[2020-07-21] MEDS: FLUOXETINE HCL 20 MG CAPSULE PO SCH (09:12)
[2020-07-21] MEDS: MULTIVITAMINS,THERAGRAN 1 UDTAB TABLET PO SCH (09:12)
[2020-07-21] MEDS: TAMSULOSIN 0.4 MG CAP.SR.24H PO SCH (09:12)
[2020-07-21] MEDS: METOPROLOL SUCCINATE 25 MG TAB.SR.24H PO SCH (09:13)
[2020-07-21] MEDS: AMLODIPINE BESYLATE 10 MG TABLET PO SCH (09:13)
[2020-07-21] MEDS: MUPIROCIN OINT 2% 22 GM TUBE NS SCH ×2 (09:14→21:08)
[2020-07-21] MEDS: Z GUARD REMEDY 2 OZ OINT TP SCH (09:17)
[2020-07-21] MEDS: CLOTRIMAZOLE/BETAMETASONE DIPROPIONATE 15 GM TUBE TP SCH ×2 (09:18→16:29)
[2020-07-21] MEDS: AMMONIUM LACTATE 227 GM BOTTLE TP SCH ×2 (09:18→16:29)
[2020-07-21] MEDS: PANTOPRAZOLE 40 MG TABLET.DR PO SCH (09:19)
[2020-07-21 12:00] VITALS: BP 126/76
[2020-07-21] MEDS ORDERED: BUMETANIDE INJ 12 MG in IV D5W 72 ML IV ONE (12:30)
--- NOTE | 2020-07-21 19:45 | NUR ---
ANALYTICAL SCIENCES DIRECTOR NOTES PATIENT IN BED RESTING COMFORTABLY, ALERT AND ORIENTED X 3-4, ON NASAL CANNULA, 3 LITERS, WITH EVEN NON-LABORED BREATHING. ON TELE MONITOR, CONTROLLED A-FIB 70'S. PATIENT SKIN KEPT CLEAN, WARM AND DRY TO TOUCH. PATIENT PRESENTING WITH NO PAIN OR DISCOMFORT AT THIS TIME. MET ALL OF PATIENT'S NEEDS. IV ACCESS INTACT AND PATENT, AND INFUSING BUMEX ORDERED. SAFETY PRECAUTIONS IMPLEMENTED WITH BED LOCKED, BILATERAL SIDE RAILS UP, BED ALARM ON, BED IN TH LOWEST POSITION, AND CALL LIGHT WITHIN EASY REACH. WILL ENDORSED PLAN OF CARE TO UPCOMING RN.
[2020-07-21 20:00] VITALS: BP 121/80
--- NOTE | 2020-07-21 20:30 | NUR ---
RN NOTES RECEIVED PT. FROM ANOTHER NURSE, PT IS Aria/JOI, SR ON TELE MONITOR HR-69, ON BARIATRIC BED, NOT IN DISTRESS, CALL LIGHT WITHIN REACH, [id number]. WILL CONTINUE TO MONITOR
--- NOTE | 2020-07-21 22:00 | NUR ---
RN NOTES' BS-164, PER PT. HE DOESN'T RECEIVE INSULIN AT NIGHT
[2020-07-21] MEDS: INSULIN GLARGINE, 100 UNIT/ML CARTRIDGE SQ SCH (22:27)
[2020-07-22] VITALS: BP 125/75
[2020-07-22 04:00] VITALS: BP 107/60
--- NOTE | 2020-07-22 06:30 | NUR ---
RN NOTES BS- 133- PT REFUSED INSULIN COVERAGE, NOT IN DISTRESS, DENIES PAIN, CALL LIGHT WITHIN REACH, SIDERAILSUPX2, PT. NEEDS ATTENDED
[2020-07-22 06:57] LABS: BASOPHILS % (AUTO) 0.2 % (0.0-2.0); EOSINOPHILS % (AUTO) 3.2 % (0.0-6.0); HEMATOCRIT 32 % (39-51); HEMOGLOBIN 10.3 g/dL (13.5-17.5); LYMPHOCYTES # (AUTO) 0.4 /CMM (0.8-4.8); LYMPHOCYTES % (AUTO) 6.1 % (20.0-44.0); MEAN CORPUSCULAR HGB CONC 33 g/dl (31.0-36.0); MEAN CORPUSCULAR VOLUME 89 fL (80-96); MONOCYTES # (AUTO) 0.8 /CMM (0.1-1.30); MONOCYTES % (AUTO) 10.5 % (2.0-12.0); NEUTROPHILS # (AUTO) 5.8 /CMM (1.8-8.9); PLATELET COUNT (AUTO) 222 /CMM (150-450); RED BLOOD CELL COUNT(AUTO) 3.52 MIL/uL (4.5-6.0); WHITE BLOOD COUNT (AUTO) 7.3 K/uL (4.3-11.0)
[2020-07-22] MEDS: BLOOD SUGAR DIAGNOSTIC 1 EACH STRIP IN SCH ×4 (07:00→21:43)
[2020-07-22 07:12] LABS: CALCIUM, SERUM 8.7 mg/dL (8.5-10.1); CARBON DIOXIDE 30 mmol/L (21-32); CHLORIDE 100 mmol/L (98-107); CREATININE 1.5 mg/dL (0.6-1.3); GLUCOSE 145 mg/dL (74-106); POTASSIUM 4.1 mmol/L (3.5-5.1); SODIUM SERUM 137 mmol/L (136-145); UREA NITROGEN, BLOOD 52 mg/dL (7-18)
--- NOTE | 2020-07-22 07:46 | NUR ---
RECORD CHANGER TESTER OPENING NOTES PATIENT IN BED RESTING COMFORTABLY, ALERT AND ORIENTED X 3-4, ON NASAL CANNULA, 3 LITERS, TOLERATING WELL WITH EVEN NON-LABORED BREATHING. ON TELE MONITOR, CONTROLLED SR AT 70'S. PATIENT SKIN KEPT CLEAN, WARM AND DRY TO TOUCH. PATIENT PRESENTING WITH NO PAIN OR DISCOMFORT AT THIS TIME. MET ALL OF PATIENT'S NEEDS. IV ACCESS ON LEFT FOREARM #18, INTACT AND PATENT, AND INFUSING BUMEX ORDERED. SAFETY PRECAUTIONS IMPLEMENTED WITH BED LOCKED, BILATERAL SIDE RAILS UP, BED ALARM ON, BED IN THE LOWEST POSITION, AND CALL LIGHT WITHIN EASY REACH.
[2020-07-22 08:00] VITALS: BP 138/72
[2020-07-22] MEDS: ATORVASTATIN 40 MG TABLET PO SCH (08:51)
[2020-07-22] MEDS: TAMSULOSIN 0.4 MG CAP.SR.24H PO SCH (08:52)
[2020-07-22] MEDS: METOPROLOL SUCCINATE 25 MG TAB.SR.24H PO SCH (08:52)
[2020-07-22] MEDS: FLUOXETINE HCL 20 MG CAPSULE PO SCH (08:52)
[2020-07-22] MEDS: AMLODIPINE BESYLATE 10 MG TABLET PO SCH (08:52)
[2020-07-22] MEDS: MULTIVITAMINS,THERAGRAN 1 UDTAB TABLET PO SCH (08:52)
[2020-07-22] MEDS: PANTOPRAZOLE 40 MG TABLET.DR PO SCH (08:56)
[2020-07-22] MEDS: MUPIROCIN OINT 2% 22 GM TUBE NS SCH ×2 (09:02→20:33)
[2020-07-22] MEDS: AMMONIUM LACTATE 227 GM BOTTLE TP SCH ×2 (09:02→17:12)
[2020-07-22] MEDS: CLOTRIMAZOLE/BETAMETASONE DIPROPIONATE 15 GM TUBE TP SCH ×2 (09:04→17:15)
[2020-07-22] MEDS: Z GUARD REMEDY 2 OZ OINT TP SCH (10:16)
--- NOTE | 2020-07-22 10:56 | NUR ---
RN NOTES PT SEEN BY DR MARSHALL WITH ORDER TO CONTINUE BUMEX 1MG/4ML ( TOTAL 12MG) IV AT 5ML/HR X 24HRS. WILL CARRY OUT ORDER.
[2020-07-22] MEDS: INSULIN REGULAR, HUMAN 100 UNIT/ML 3 ML VIAL SQ PRN ×2 (11:53→17:50)
[2020-07-22 12:00] VITALS: BP 132/76
[2020-07-22] MEDS ORDERED: BUMETANIDE INJ 12 MG in IV D5W 72 ML IV ONE (13:00)
[2020-07-22 16:00] VITALS: BP 153/81
[2020-07-22] MEDS: WARFARIN SODIUM 5 MG TABLET PO SCH (17:06)
--- NOTE | 2020-07-22 18:37 | NUR ---
INTERNAL REVENUE SERVICE AGENT OPENING NOTES PATIENT IN BED, ALERT AND ORIENTED X 3-4 ABLE TO MAKE NEEDS KNOWN. ON NASAL CANNULA, 3 LPM, TOLERATING WELL WITH EVEN NON-LABORED BREATHING. ON TELE MONITOR, AFIB CONTROLLED AT 70'S. PATIENT SKIN KEPT CLEAN, WARM AND DRY TO TOUCH. PATIENT PRESENTING WITH NO PAIN OR DISCOMFORT AT THIS TIME. MET ALL OF PATIENT'S NEEDS. IV ACCESS ON LEFT FOREARM #18, INTACT AND PATENT, AND INFUSING BUMEX 5ML/HR [id number] ORDERED. SAFETY PRECAUTIONS IMPLEMENTED WITH BED LOCKED, BILATERAL SIDE RAILS UP, BED ALARM ON, BED IN THE LOWEST POSITION, AND CALL LIGHT WITHIN REACH. WILL ENDORSE ONCOMING NURSE PLAN OF CARE. Addendum: 07/22/20 at 1841 by RAGHU RODRIGUEZ RN INTERNAL REVENUE SERVICE AGENT CLOSING NOTES PATIENT IN BED, ALERT AND ORIENTED X 3-4 ABLE TO MAKE NEEDS KNOWN. ON NASAL CANNULA, 3 LPM, TOLERATING WELL WITH EVEN NON-LABORED BREATHING. ON TELE MONITOR, AFIB CONTROLLED AT 70'S. PATIENT SKIN KEPT CLEAN, WARM AND DRY TO TOUCH. PATIENT PRESENTING WITH NO PAIN OR DISCOMFORT AT THIS TIME. MET ALL OF PATIENT'S NEEDS. IV ACCESS ON LEFT FOREARM #18, INTACT AND PATENT, AND INFUSING BUMEX 5ML/HR [id number] ORDERED. SAFETY PRECAUTIONS IMPLEMENTED WITH BED LOCKED, BILATERAL SIDE RAILS UP, BED ALARM ON, BED IN THE LOWEST POSITION, AND CALL LIGHT WITHIN REACH. WILL ENDORSE ONCOMING NURSE PLAN OF CARE.
--- NOTE | 2020-07-22 19:30 | NUR ---
TELE/RN OPENING NOTES RECEIVED PATIENT IN BED RESTING. PATIENT IS ALERT AND ORIENTED X 3.PATIENT TELE READING AFIB CONTROLLED. NO SIGNS OF SOB OR RESPIRATORY DISTRESS NOTED. BREATHING IS EVEN AND UNLABORED. PATIENT HAS LEFT FA #18G INTACT. SAFETY MEASURES ARE IN PLACE, BED IS LOCKED AND PLACED IN THE LOW POSITION, SIDE RAILS UP X 3, CALL LIGHT IS WITHIN REACH. WILL CONTINUE TO MONITOR THROUGH OUT SHIFT.
[2020-07-22 20:00] VITALS: BP 126/78
[2020-07-22] MEDS: INSULIN GLARGINE, 100 UNIT/ML CARTRIDGE SQ SCH (21:46)
[2020-07-23] VITALS: BP 132/70
[2020-07-23 04:00] VITALS: BP 131/75
--- NOTE | 2020-07-23 06:55 | NUR ---
TELE/RN CLOSING NOTES PATIENT IN BED SLEEPING. PATIENT IS ALERT AND ORIENTED X 3.PATIENT TELE READING AFIB CONTROLLED. NO SIGNS OF SOB OR RESPIRATORY DISTRESS NOTED. BREATHING IS EVEN AND UNLABORED. PATIENT HAS LEFT FA #18G INTACT. PATIENT STRICT I/O MONITORING. PATIENT REFUSED CLEANING AND BED SHEET CHANGE THIS MORNING. ALL NEEDS HAVE BEEN MET. SAFETY MEASURES ARE IN PLACE, BED IS LOCKED AND PLACED IN THE LOW POSITION, SIDE RAILS UP X 3, CALL LIGHT IS WITHIN REACH. WILL ENDORSE CARE TO DAY SHIFT NURSE.
[2020-07-23] MEDS: BLOOD SUGAR DIAGNOSTIC 1 EACH STRIP IN SCH ×4 (07:11→22:12)
[2020-07-23 08:00] VITALS: BP 133/82
[2020-07-23] MEDS: CLOTRIMAZOLE/BETAMETASONE DIPROPIONATE 15 GM TUBE TP SCH ×2 (09:00→17:00)
[2020-07-23 10:18] LABS: BASOPHILS % (AUTO) 0.2 % (0.0-2.0); EOSINOPHILS % (AUTO) 3.5 % (0.0-6.0); HEMATOCRIT 33 % (39-51); HEMOGLOBIN 10.7 g/dL (13.5-17.5); LYMPHOCYTES # (AUTO) 0.5 /CMM (0.8-4.8); LYMPHOCYTES % (AUTO) 7.1 % (20.0-44.0); MEAN CORPUSCULAR HGB CONC 33 g/dl (31.0-36.0); MEAN CORPUSCULAR VOLUME 90 fL (80-96); MONOCYTES # (AUTO) 0.9 /CMM (0.1-1.30); MONOCYTES % (AUTO) 11.9 % (2.0-12.0); NEUTROPHILS # (AUTO) 5.6 /CMM (1.8-8.9); NEUTROPHILS % (AUTO) 77.3 % (43.0-81.0); PLATELET COUNT (AUTO) 231 /CMM (150-450); RED BLOOD CELL COUNT(AUTO) 3.63 MIL/uL (4.5-6.0); WHITE BLOOD COUNT (AUTO) 7.3 K/uL (4.3-11.0)
[2020-07-23 10:28] LABS: ALBUMIN 2.7 g/dL (3.4-5.0); BILIRUBIN,TOTAL 0.6 mg/dL (0.2-1.0); CALCIUM, SERUM 8.7 mg/dL (8.5-10.1); CREATININE 1.3 mg/dL (0.6-1.3); MAGNESIUM 1.8 mg/dL (1.8-2.4); PHOSPHORUS 4.1 mg/dL (2.5-4.9); TOTAL PROTEIN, SERUM 6.4 g/dL (6.4-8.2)
[2020-07-23] MEDS: MULTIVITAMINS,THERAGRAN 1 UDTAB TABLET PO SCH (11:32)
[2020-07-23] MEDS: FLUOXETINE HCL 20 MG CAPSULE PO SCH (11:33)
[2020-07-23] MEDS: ATORVASTATIN 40 MG TABLET PO SCH (11:33)
[2020-07-23] MEDS: AMLODIPINE BESYLATE 10 MG TABLET PO SCH (11:34)
[2020-07-23] MEDS: TAMSULOSIN 0.4 MG CAP.SR.24H PO SCH (11:35)
[2020-07-23] MEDS: PANTOPRAZOLE 40 MG TABLET.DR PO SCH (11:35)
[2020-07-23] MEDS: METOPROLOL SUCCINATE 25 MG TAB.SR.24H PO SCH (11:35)
[2020-07-23] MEDS: Z GUARD REMEDY 2 OZ OINT TP SCH (11:44)
[2020-07-23] MEDS: AMMONIUM LACTATE 227 GM BOTTLE TP SCH ×2 (11:46→18:10)
[2020-07-23] MEDS: MUPIROCIN OINT 2% 22 GM TUBE NS SCH ×2 (11:47→22:09)
[2020-07-23] MEDS: INSULIN REGULAR, HUMAN 100 UNIT/ML 3 ML VIAL SQ PRN ×2 (12:38→18:25)
[2020-07-23 16:00] VITALS: BP 127/71
--- NOTE | 2020-07-23 18:00 | NUR ---
received pt. in am.very neddy,demanding,stable,vs stable.
[2020-07-23] MEDS: WARFARIN SODIUM 5 MG TABLET PO SCH (18:02)
[2020-07-23 20:00] VITALS: BP 115/60
[2020-07-23] MEDS: INSULIN GLARGINE, 100 UNIT/ML CARTRIDGE SQ SCH (22:12)
[2020-07-24] VITALS: BP 120/74
--- NOTE | 2020-07-24 01:20 | NUR ---
REPORTS GIVEN TO HENRI VELEZ FOR CONTINUITY OF CARE.
--- NOTE | 2020-07-24 01:21 | NUR ---
TELERN RECEIVED REPORT FROM OUTGOING RN. RESUMED CARE. PATIENT ASLEEP, APPEARS COMFORTABLE. REMAINS AFIB N THE MONITOR AT RATE 70s. CLOSELY WATCHED.
[2020-07-24 04:00] VITALS: BP 132/73
--- NOTE | 2020-07-24 06:45 | NUR ---
TELERN REMAINS UNCHANGED BS 94. AFIB CONTROLLED ON THE MONITOR
[2020-07-24] MEDS: BLOOD SUGAR DIAGNOSTIC 1 EACH STRIP IN SCH ×4 (06:53→22:06)
--- NOTE | 2020-07-24 07:45 | NUR ---
GRANITE POLISHER OPENING NOTES RECEIVED PATIENT RESTING IN BED A/O X4. PATIENT ON OXYGEN VIA NC @3L, BREATHING EVEN AND UNLABORED, NO ACUTE RESPIRATORY DISTRESS NOTED. PATIENT ON TELE MONITOR READING AFIB WITH CONTROLLED PVC'S. IV TO LT FA #18G PATENT AND INTACT, FLUSHING WELL KEPT SL. BED IS AT LOW POSITION AND LOCKED WITH SIDE RAILS UP X 3 AND CALL LIGHT WITHIN REACH. WILL CONTINUE TO MONITOR THROUGH OUT SHIFT.
[2020-07-24 08:00] VITALS: BP 141/81
[2020-07-24 08:05] LABS: BASOPHILS % (AUTO) 0.4 % (0.0-2.0); EOSINOPHILS % (AUTO) 4.3 % (0.0-6.0); HEMATOCRIT 32 % (39-51); HEMOGLOBIN 10.6 g/dL (13.5-17.5); LYMPHOCYTES # (AUTO) 0.6 /CMM (0.8-4.8); LYMPHOCYTES % (AUTO) 8.7 % (20.0-44.0); MEAN CORPUSCULAR HGB CONC 33 g/dl (31.0-36.0); MEAN CORPUSCULAR VOLUME 89 fL (80-96); MONOCYTES # (AUTO) 0.8 /CMM (0.1-1.30); NEUTROPHILS # (AUTO) 4.9 /CMM (1.8-8.9); NEUTROPHILS % (AUTO) 74.6 % (43.0-81.0); PLATELET COUNT (AUTO) 224 /CMM (150-450); RED BLOOD CELL COUNT(AUTO) 3.58 MIL/uL (4.5-6.0); WHITE BLOOD COUNT (AUTO) 6.6 K/uL (4.3-11.0)
[2020-07-24 08:17] LABS: ALBUMIN 2.6 g/dL (3.4-5.0); BILIRUBIN,TOTAL 0.6 mg/dL (0.2-1.0); CALCIUM, SERUM 8.8 mg/dL (8.5-10.1); CREATININE 1.2 mg/dL (0.6-1.3); MAGNESIUM 1.8 mg/dL (1.8-2.4); PHOSPHORUS 3.3 mg/dL (2.5-4.9); TOTAL PROTEIN, SERUM 6.3 g/dL (6.4-8.2)
[2020-07-24] MEDS: TAMSULOSIN 0.4 MG CAP.SR.24H PO SCH (08:23)
[2020-07-24] MEDS: MULTIVITAMINS,THERAGRAN 1 UDTAB TABLET PO SCH (08:24)
[2020-07-24] MEDS: ATORVASTATIN 40 MG TABLET PO SCH (08:24)
[2020-07-24] MEDS: FLUOXETINE HCL 20 MG CAPSULE PO SCH (08:24)
[2020-07-24] MEDS: PANTOPRAZOLE 40 MG TABLET.DR PO SCH (08:24)
[2020-07-24] MEDS: AMLODIPINE BESYLATE 10 MG TABLET PO SCH (08:25)
[2020-07-24] MEDS: METOPROLOL SUCCINATE 25 MG TAB.SR.24H PO SCH (08:25)
[2020-07-24] MEDS: AMMONIUM LACTATE 227 GM BOTTLE TP SCH ×2 (08:29→17:17)
[2020-07-24] MEDS: Z GUARD REMEDY 2 OZ OINT TP SCH (08:30)
[2020-07-24] MEDS: CLOTRIMAZOLE/BETAMETASONE DIPROPIONATE 15 GM TUBE TP SCH ×2 (08:30→17:18)
[2020-07-24] MEDS: MUPIROCIN OINT 2% 22 GM TUBE NS SCH ×2 (08:32→21:58)
[2020-07-24] MEDS ORDERED: ENOXAPARIN SODIUM 100 MG/ML DISP.SYRIN SQ SCH (10:00)
[2020-07-24] MEDS ORDERED: BUMETANIDE (1 MG) 1 MG TABLET PO SCH (11:00)
[2020-07-24 12:00] VITALS: BP 144/85
[2020-07-24] MEDS: BUMETANIDE INJ 0.25 MG/ML VIAL IV SCH ×2 (12:14→17:13)
[2020-07-24] MEDS: INSULIN REGULAR, HUMAN 100 UNIT/ML 3 ML VIAL SQ PRN ×2 (12:16→17:09)
[2020-07-24 16:00] VITALS: BP 130/75
[2020-07-24] MEDS: WARFARIN SODIUM 5 MG TABLET PO SCH (17:14)
--- NOTE | 2020-07-24 19:41 | NUR ---
GENERATOR REBUILDER CLOSING NOTES PATIENT RESTING IN BED A/O X4. PATIENT ON OXYGEN VIA NC @3L, BREATHING EVEN AND UNLABORED, NO ACUTE RESPIRATORY DISTRESS NOTED. PATIENT ON TELE MONITOR READING AFIB WITH CONTROLLED PVC'S. IV TO LT FA #18G PATENT AND INTACT, FLUSHING WELL KEPT SL. BED IS AT LOW POSITION AND LOCKED WITH SIDE RAILS UP X 3 AND CALL LIGHT WITHIN REACH. WILL ENDORSE TO ONCOMING SHIFT
--- NOTE | 2020-07-24 19:50 | NUR ---
HENRI JORDAN PATIENT RECEIVED RESTING IN BED A/O X 4. ON 3L OF O2 WITH BREATHING EVEN AND UNLABORED, NO SOB NOTED. NO SIGNS OF ACUTE DISTRESS. NO COMPLAINTS OF PAIN OR DISCOMFORT. IV LOCATED ON LFA #18 PATENT AND INTACT. SAFETY PRECAUTIONS IN PLACE WITH BED IN LOWEST POSITION, CALL LIGHT WITHIN REACH, BREAKS ON, SIDE RAILS UP.
[2020-07-24 20:00] VITALS: BP 144/67
[2020-07-24] MEDS: INSULIN GLARGINE, 100 UNIT/ML CARTRIDGE SQ SCH (22:08)
[2020-07-25] VITALS: BP 130/81
[2020-07-25 04:00] VITALS: BP 145/79
[2020-07-25] MEDS: BLOOD SUGAR DIAGNOSTIC 1 EACH STRIP IN SCH ×4 (07:28→22:37)
--- NOTE | 2020-07-25 07:50 | NUR ---
RN CLOSING NOTES PATIENT RESTING IN BED A/O X 4. ON 2L OF O2 WITH BREATHING EVEN AND UNLABORED, NO SOB NOTED. NO SIGNS OF ACUTE DISTRESS. NO COMPLAINTS OF PAIN OR DISCOMFORT. IV LOCATED ON LFA #18 PATENT AND INTACT. SAFETY PRECAUTIONS IN PLACE WITH BED IN LOWEST POSITION, CALL LIGHT WITHIN REACH, BREAKS ON, SIDE RAILS UP. ALL NEEDS ATTENDED TO. PATIENT KEPT CLEAN AND DRY THROUGHOUT THE NIGHT. WILL ENDORSE TO ONCOMING SHFT ABOUT EUGENE.
--- NOTE | 2020-07-25 07:55 | NUR ---
AUTO SALVAGE WORKER OPENING NOTES PATIENT IN BED, ALERT AND ORIENTED X 3-4 ABLE TO MAKE NEEDS KNOWN. ON NASAL CANNULA, 2 LPM, TOLERATING WELL WITH EVEN NON-LABORED BREATHING. ON TELE MONITOR, AFIB CONTROLLED AT 70'S. PATIENT SKIN KEPT CLEAN, WARM AND DRY TO TOUCH. PATIENT PRESENTING WITH NO PAIN OR DISCOMFORT AT THIS TIME. MET ALL OF PATIENT'S NEEDS. IV ACCESS ON LEFT FOREARM #18, INTACT AND PATENT. SAFETY PRECAUTIONS IMPLEMENTED WITH BED LOCKED, BILATERAL SIDE RAILS UP, BED ALARM ON, BED IN THE LOWEST POSITION, CALL LIGHT WITHIN REACH.
[2020-07-25 08:00] VITALS: BP 138/95
[2020-07-25] MEDS: PANTOPRAZOLE 40 MG TABLET.DR PO SCH (08:11)
[2020-07-25] MEDS ORDERED: ENOXAPARIN SODIUM 40 MG/0.4 ML DISP.SYRIN SQ SCH (09:00)
[2020-07-25] MEDS: METOPROLOL SUCCINATE 25 MG TAB.SR.24H PO SCH (09:04)
[2020-07-25] MEDS: BUMETANIDE INJ 0.25 MG/ML VIAL IV SCH ×2 (09:04→16:57)
[2020-07-25] MEDS: ATORVASTATIN 40 MG TABLET PO SCH (09:05)
[2020-07-25] MEDS: FLUOXETINE HCL 20 MG CAPSULE PO SCH (09:05)
[2020-07-25] MEDS: AMLODIPINE BESYLATE 10 MG TABLET PO SCH (09:05)
[2020-07-25] MEDS: TAMSULOSIN 0.4 MG CAP.SR.24H PO SCH (09:05)
[2020-07-25] MEDS: Z GUARD REMEDY 2 OZ OINT TP PRN (09:17)
[2020-07-25] MEDS: MUPIROCIN OINT 2% 22 GM TUBE NS SCH ×2 (09:17→22:36)
[2020-07-25] MEDS: Z GUARD REMEDY 2 OZ OINT TP SCH (09:18)
[2020-07-25] MEDS: MULTIVITAMINS,THERAGRAN 1 UDTAB TABLET PO SCH (09:19)
[2020-07-25] MEDS: AMMONIUM LACTATE 227 GM BOTTLE TP SCH ×2 (09:19→17:00)
[2020-07-25] MEDS: CLOTRIMAZOLE/BETAMETASONE DIPROPIONATE 15 GM TUBE TP SCH ×2 (09:20→17:00)
[2020-07-25] MEDS ORDERED: ENOXAPARIN SODIUM 60 MG/0.6 ML DISP.SYRIN SQ ONE (10:30)
[2020-07-25] MEDS: INSULIN REGULAR, HUMAN 100 UNIT/ML 3 ML VIAL SQ PRN ×2 (11:52→17:03)
[2020-07-25 16:00] VITALS: BP 114/60
[2020-07-25] MEDS: WARFARIN SODIUM 5 MG TABLET PO SCH (16:59)
--- NOTE | 2020-07-25 19:18 | NUR ---
MACHINERY RIGGER CLOSING NOTES PATIENT IN BED, ALERT AND ORIENTED X 3-4 ABLE TO MAKE NEEDS KNOWN. ON OXYGEN AT 2LPM VIA NASAL CANNULA, TOLERATING WELL WITH EVEN NON-LABORED BREATHING. ON TELE MONITOR, AFIB CONTROLLED AT 70'S. PATIENT SKIN KEPT CLEAN, WARM AND DRY TO TOUCH. PATIENT PRESENTING WITH NO PAIN OR DISCOMFORT AT THIS TIME. MET ALL OF PATIENT'S NEEDS. IV ACCESS ON LEFT FOREARM #18, INTACT AND PATENT. SAFETY PRECAUTIONS IMPLEMENTED WITH BED LOCKED, SIDE RAILS WITH PADDING UP X4, BED ALARM ON, BED IN THE LOWEST POSITION, CALL LIGHT WITHIN REACH. WILL ENDORSE PLAN OF CARE TO ONCOMING NURSE.
--- NOTE | 2020-07-25 19:45 | NUR ---
TELERN FULLY AWAKE, ALL NEEDS ATTENDED. NO DISCOMFORTS MADE .
[2020-07-25 20:40] VITALS: BP 113/65
--- NOTE | 2020-07-25 22:10 | NUR ---
TELERN BS 139, LANTUS ADMINISTERED ORDERED. REFUSED TO HAVE SNACKS. STATED WILL CALL IF NEEDED. WENT BACK TO SLEEP.
[2020-07-25] MEDS: INSULIN GLARGINE, 100 UNIT/ML CARTRIDGE SQ SCH (22:39)
[2020-07-26 00:15] VITALS: BP 122/79
[2020-07-26 04:35] VITALS: BP 121/71
--- NOTE | 2020-07-26 06:33 | NUR ---
TELERN BS 131. NO NEEDS MADE. STABLE FOR NOW
--- NOTE | 2020-07-26 07:59 | NUR ---
REAL ESTATE LEGAL ASSISTANT OPENING NOTE PATIENT IS IN BED RESTING COMFORTABLY. PATIENT IS IN NO ACUTE DISTRESS. PATIENT IS ON OXYGEN NC ON 2L. PATIENT IS ON BIOSOLIDS MANAGEMENT TECHNICIAN READING AFIB 74. NO FACIAL GRIMACING OR SIGNS OF PAIN PRESENT. BED ALARM IS ON. CALL LIGHT WITHIN REACH. BED IS IN THE LOWEST POSITION WITH SIDES RAILS UP. WILL CONTINUE TO MONITOR.
[2020-07-26 08:00] VITALS: BP 114/72
[2020-07-26] MEDS: BLOOD SUGAR DIAGNOSTIC 1 EACH STRIP IN SCH ×2 (08:18→12:06)
[2020-07-26] MEDS: AMLODIPINE BESYLATE 10 MG TABLET PO SCH (09:00)
[2020-07-26] MEDS ORDERED: ENOXAPARIN SODIUM 100 MG/ML DISP.SYRIN SQ SCH (09:00)
[2020-07-26] MEDS: METOPROLOL SUCCINATE 25 MG TAB.SR.24H PO SCH (09:00)
[2020-07-26] MEDS: TAMSULOSIN 0.4 MG CAP.SR.24H PO SCH (09:02)
[2020-07-26] MEDS: MULTIVITAMINS,THERAGRAN 1 UDTAB TABLET PO SCH (09:02)
[2020-07-26] MEDS: PANTOPRAZOLE 40 MG TABLET.DR PO SCH (09:02)
[2020-07-26] MEDS: FLUOXETINE HCL 20 MG CAPSULE PO SCH (09:03)
[2020-07-26] MEDS: BUMETANIDE INJ 0.25 MG/ML VIAL IV SCH ×2 (09:03→17:27)
[2020-07-26] MEDS: ATORVASTATIN 40 MG TABLET PO SCH (09:03)
[2020-07-26] MEDS: Z GUARD REMEDY 2 OZ OINT TP SCH (09:26)
[2020-07-26] MEDS: AMMONIUM LACTATE 227 GM BOTTLE TP SCH (09:26)
[2020-07-26] MEDS: MUPIROCIN OINT 2% 22 GM TUBE NS SCH (09:27)
[2020-07-26] MEDS: CLOTRIMAZOLE/BETAMETASONE DIPROPIONATE 15 GM TUBE TP SCH (09:28)
--- NOTE | 2020-07-26 09:31 | NUR ---
DRUG ROOM CLERK NOTE DID NOT ADMINISTER SCHEDULED MEDICATIONS NORVASC AND METOPROLOL DUE TO DECREASED BLOOD PRESSURE 114/72.
[2020-07-26] MEDS: INSULIN REGULAR, HUMAN 100 UNIT/ML 3 ML VIAL SQ PRN (12:13)
--- NOTE | 2020-07-26 15:30 | NUR ---
report called to rn at facility.
[2020-07-26 16:00] VITALS: BP 121/73
--- NOTE | 2020-07-26 16:00 | NUR ---
no chg. in status,dc photos taken.
--- NOTE | 2020-07-26 17:40 | NUR ---
ambulance here,hep lock out. tele dc'd.report to drivers.all papers signed.taken via amb. to facility.
== END 2020-07-26 18:00 | DRG 291 ==
LOC: ER 22:30 → TRANSITION 07-18 01:18 → TELE 07-18 16:49
PROVIDERS: ADMIT Registered Nurse; ATTEND Nurse Practitioner Acute Care
DX: I13.0 Hypertensive heart and chronic kidney disease with heart failure and stage 1 through stage 4 chronic kidney disease, or unspecified chronic kidney disease (principal); J96.01 Acute respiratory failure with hypoxia; N17.0 Acute kidney failure with tubular necrosis; I50.43 Acute on chronic combined systolic (congestive) and diastolic (congestive) heart failure; E66.2 Morbid (severe) obesity with alveolar hypoventilation; Z68.42 Body mass index [BMI] 45.0-49.9, adult; D68.59 Other primary thrombophilia; D68.9 Coagulation defect, unspecified; E44.0 Moderate protein-calorie malnutrition; I48.91 Unspecified atrial fibrillation; N18.9 Chronic kidney disease, unspecified; E11.22 Type 2 diabetes mellitus with diabetic chronic kidney disease; E87.5 Hyperkalemia; N40.0 Benign prostatic hyperplasia without lower urinary tract symptoms; I87.2 Venous insufficiency (chronic) (peripheral); E11.51 Type 2 diabetes mellitus with diabetic peripheral angiopathy without gangrene; E78.5 Hyperlipidemia, unspecified; F32.9 Major depressive disorder, single episode, unspecified; I25.10 Atherosclerotic heart disease of native coronary artery without angina pectoris; Z79.4 Long term (current) use of insulin; Z79.82 Long term (current) use of aspirin; Z79.899 Other long term (current) drug therapy; Z74.09 Other reduced mobility; R26.9 Unspecified abnormalities of gait and mobility; K21.9 Gastro-esophageal reflux disease without esophagitis; Z20.828 Contact with and (suspected) exposure to other viral communicable diseases; Z79.01 Long term (current) use of anticoagulants; S81.812A Laceration without foreign body, left lower leg, initial encounter; X58.XXXA Exposure to other specified factors, initial encounter; Y92.9 Unspecified place or not applicable; Z74.01 Bed confinement status; R29.6 Repeated falls; Z89.411 Acquired absence of right great toe; L85.3 Xerosis cutis; F41.9 Anxiety disorder, unspecified; L30.4 Erythema intertrigo; E11.621 Type 2 diabetes mellitus with foot ulcer; L97.529 Non-pressure chronic ulcer of other part of left foot with unspecified severity; Z89.422 Acquired absence of other left toe(s)
CPT/HCPCS: 36415; 71045-TC; 76770-TC; 80048-TC; 80053-TC; 80061-TC; 80076-TC; 81001; 82550-TC; 82570-TC; 82728-TC; 82962-TC; 83615-TC; 83735-TC; 83880; 83970; 84100-TC; 84132-TC; 84155; 84155-TC; 84165; 84300-TC; 84439-TC; 84443-TC; 84481; 84484-TC; 85025-TC; 85378-TC; 85610-TC; 85730-TC; 86140-TC; 87081-TC; 93307-TC; 93970-TC; 97112-TC; 97530-TC; C9803; G0378; J1650; J1815; J1940; J3490; J7030; J7060

== ENCOUNTER 2020-08-19 09:25 | Inpatient (IN) | payer MEDICARE, OTHER ==
[~2020-08-19] VITALS: Ht 190.5 cm; Wt 169.2 kg
[~2020-08-19 09:25] MED LIST changes: -PIPE3.379 IV; -VANC1.5P20 IV
--- NOTE | 2020-08-19 09:30 | NUR ---
BIB [facility] FROM HOME,WORSENING SOB THIS MORNING, RECENTLY D/C"D FROM A CARE FACILITY FOR CHF,TESTED (-) TO COVID 5 DAYS AGO. PATIENT A/OX4, SOB. DR. ESQUIVEL AT BEDSIDE. RT PRESENT.
[2020-08-19 09:59] LABS: BASOPHILS # (AUTO) 0.1 /CMM (0.0-0.2); BASOPHILS % (AUTO) 0.4 % (0.0-2.0); EOSINOPHILS % (AUTO) 1.2 % (0.0-6.0); HEMATOCRIT 35 % (39-51); LYMPHOCYTES # (AUTO) 0.8 /CMM (0.8-4.8); LYMPHOCYTES % (AUTO) 6.5 % (20.0-44.0); MEAN CORPUSCULAR HGB CONC 31 g/dl (31.0-36.0); MEAN CORPUSCULAR VOLUME 92 fL (80-96); MONOCYTES # (AUTO) 0.7 /CMM (0.1-1.30); MONOCYTES % (AUTO) 6.3 % (2.0-12.0); NEUTROPHILS % (AUTO) 85.6 % (43.0-81.0); PLATELET COUNT (AUTO) 287 /CMM (150-450); WHITE BLOOD COUNT (AUTO) 11.7 K/uL (4.3-11.0)
[2020-08-19] MEDS ORDERED: DEXAMETHASONE SOD PHOSPHATE 10 MG/ML VIAL ONE (10:10)
[2020-08-19 10:18] LABS: CALCIUM, SERUM 9.2 mg/dL (8.5-10.1); CARBON DIOXIDE 27 mmol/L (21-32); CHLORIDE 100 mmol/L (98-107); CREATININE 1.4 mg/dL (0.6-1.3); GLUCOSE 122 mg/dL (74-106); POTASSIUM 4.4 mmol/L (3.5-5.1); SODIUM SERUM 137 mmol/L (136-145); UREA NITROGEN, BLOOD 29 mg/dL (7-18)
--- NOTE | 2020-08-19 10:23 | NUR ---
MOVE SHEET SUBMITTED AND CALLED FOR TELE BED.
[2020-08-19 10:30] LABS: ALANINE AMINOTRANSFERASE 18 U/L (12-78); ALBUMIN 3.2 g/dL (3.4-5.0); ALKALINE PHOSPHATASE 108 U/L (46-116); ASPARTATE AMINOTRANSFERASE 19 U/L (15-37); B-TYPE NATRIURETIC PEPTIDE 6142 PG/ML (0-125); BILIRUBIN,TOTAL 0.7 mg/dL (0.2-1.0); TOTAL PROTEIN, SERUM 7.4 g/dL (6.4-8.2)
[2020-08-19] MEDS ORDERED: FUROSEMIDE 40 MG/4 ML VIAL IV ONE (10:30)
[2020-08-19] MEDS ORDERED: DEXAMETHASONE SOD PHOSPHATE 10 MG/ML VIAL IV ONE (10:30)
[2020-08-19 10:34] LABS: C-REACTIVE PROTEIN 1.2 mg/dL (0.0-0.9); CREATINE KINASE, TOTAL 108 U/L (39-308); FERRITIN 142 ng/mL (8-388)
[2020-08-19] MEDS ORDERED: FUROSEMIDE 40 MG/4 ML VIAL ONE ×2 (10:47→20:45)
--- NOTE | 2020-08-19 10:47 | NUR ---
PANEL ON-CALL PAGED
[2020-08-19] MEDS ORDERED: ENOXAPARIN SODIUM 40 MG/0.4 ML DISP.SYRIN SQ SCH (11:00)
[2020-08-19] MEDS ORDERED: NITROGLYCERIN 0.4 MG/TAB BOTTLE SL PRN (11:00)
[2020-08-19] MEDS ORDERED: WARF7.5T49 PO (11:24)
[2020-08-19] MEDS ORDERED: BUME1TAB8 PO (11:24)
[2020-08-19] MEDS ORDERED: ENOXAPARIN SODIUM 40 MG/0.4 ML DISP.SYRIN SQ ONE (11:56)
[2020-08-19] MEDS: AZITHROMYCIN 500 MG in IV D5W 250 ML IV SCH (11:56)
[2020-08-19 13:12] LABS: ABG BASE EXCESS -1.1 mmol/L; ABG OXYGEN SATURATION 98.3 % (92.0-98.5); ABG PCO2 41.1 mmHg (35.0-45.0); ABG PH 7.382 (7.350-7.450); ABG PO2 144.8 mmHg (75.0-100.0); AaDO2 93.1 mmHg; COHb 0.7 % (0.5-1.5); MetHb 0.3 % (0.0-1.5); O2Hb 97.3 % (94.0-97.0); SITE, ABG Right Radial; VENT MODE, BG ST 15/5 40%
--- NOTE | 2020-08-19 13:30 | NUR ---
PATIENT ON BIPAP AND TOLERATING CURRENT SETTINGS. NO DISTRESS NOTED.
--- NOTE | 2020-08-19 13:57 | NUR ---
SPOKE TO THOMAS AUGUSTE [place].
--- NOTE | 2020-08-19 14:30 | NUR ---
RT AT BEDSIDE, WEANED OFF PATIENT FROM BIPAP, TO 4LPM VIA NC WITH SPO2 OF 100%.
[2020-08-19] MEDS ORDERED: DEXTROSE 50%-WATER 50 ML DISP.SYRIN IV PRN (15:00)
[2020-08-19] MEDS ORDERED: ACETAMINOPHEN 325 MG TABLET PO PRN (15:00)
[2020-08-19] MEDS ORDERED: BISACODYL SUPP (10 MG) 10 MG/SUPP.RECT SUPP.RECT RC PRN (15:00)
--- NOTE | 2020-08-19 15:15 | NUR ---
COVID RESULT NEGATIVE PER MAIN LAB
--- NOTE | 2020-08-19 16:32 | NUR ---
PATIENT RESTING NO DISTRESS NOTED.
[2020-08-19] MEDS ORDERED: METOLAZONE 2.5 MG TABLET PO ONE (17:00)
[2020-08-19] MEDS ORDERED: FUROSEMIDE 40 MG/4 ML VIAL IV SCH (17:00)
[2020-08-19] MEDS: BLOOD SUGAR DIAGNOSTIC 1 EACH STRIP VI SCH ×2 (17:34→22:54)
[2020-08-19] MEDS: INSULIN REGULAR, HUMAN 100 UNIT/ML 3 ML VIAL SQ PRN (18:09)
[2020-08-19] MEDS ORDERED: METOLAZONE 2.5 MG TABLET ONE (18:18)
[2020-08-19] MEDS ORDERED: LEVOFLOXACIN 500 MG /D5W 100ML 100 ML IV ONE (18:42)
[2020-08-19] MEDS ORDERED: LEVOFLOXACIN 500 MG /D5W 100ML 500 MG/100 ML PIGGYBACK IV SCH (20:00)
[2020-08-19] MEDS: FUROSEMIDE 40 MG/4 ML VIAL IV SCH (20:56)
[2020-08-19] MEDS: INSULIN GLARGINE, 100 UNIT/ML CARTRIDGE SQ SCH (23:02)
--- NOTE | 2020-08-19 23:04 | NUR ---
COVID NEG PCR
[2020-08-19] MEDS: *INSULIN REGULAR(HUMULIN R)HUM 100 UNIT/ML VIAL SQ PRN (23:24)
--- NOTE | 2020-08-19 23:48 | NUR ---
PATIENT CURRENTLY EATING PEANUT BUTTER SANDWICH AND DRINKING CRANBERRY JUICE X2
--- NOTE | 2020-08-20 01:42 | NUR ---
PATIENT WAS AWOKEN FROM SLEEP. PATIENT IS AAOX4. NO SOB .BREATHING EVENLY AND UNLABORED ON ROOM AIR. CONNECTED TO THE GYRO COMPASS TESTER. PATIENT'S BED IS AT THE LOWEST POSITION. SIDE RAILS ARE UP FOR SAFETY. PATIENT'S CALL LIGHT IS WITHIN REACH. CURRENTLY NO COMPLAINTS. WILL CONTINUE TO WATCH THE PATIENT CLOSELY.
--- NOTE | 2020-08-20 04:52 | NUR ---
PATIENT IS SLEEPING. PATIENT IS BREATHING EVENLY AND UNLABORED ON ROOM AIR AT 100% OXYGEN SATURATION. PATIENT IS CONNECTED TO THE WORKCELL OPERATOR. CALL LIGHT IS WITHIN REACH. SIDE RAILS ARE UP FOR SAFETY. BED IS AT THE LOWEST POSITION. WILL CONTINUE TO MONITOR THE PATIENT CLOSELY.
[2020-08-20 05:46] LABS: BASOPHILS % (AUTO) 0.1 % (0.0-2.0); HEMATOCRIT 32 % (39-51); HEMOGLOBIN 10.2 g/dL (13.5-17.5); LYMPHOCYTES # (AUTO) 0.4 /CMM (0.8-4.8); LYMPHOCYTES % (AUTO) 3.2 % (20.0-44.0); MEAN CORPUSCULAR HGB CONC 32 g/dl (31.0-36.0); MEAN CORPUSCULAR VOLUME 90 fL (80-96); MONOCYTES # (AUTO) 0.9 /CMM (0.1-1.30); MONOCYTES % (AUTO) 7.6 % (2.0-12.0); NEUTROPHILS # (AUTO) 10.7 /CMM (1.8-8.9); NEUTROPHILS % (AUTO) 89.1 % (43.0-81.0); PLATELET COUNT (AUTO) 269 /CMM (150-450); RED BLOOD CELL COUNT(AUTO) 3.54 MIL/uL (4.5-6.0)
[2020-08-20 06:00] LABS: ALANINE AMINOTRANSFERASE 16 U/L (12-78); ALKALINE PHOSPHATASE 95 U/L (46-116); ASPARTATE AMINOTRANSFERASE 19 U/L (15-37); BILIRUBIN,TOTAL 0.5 mg/dL (0.2-1.0); CALCIUM, SERUM 8.7 mg/dL (8.5-10.1); CARBON DIOXIDE 27 mmol/L (21-32); CHLORIDE 99 mmol/L (98-107); CREATININE 1.6 mg/dL (0.6-1.3); GLUCOSE 270 mg/dL (74-106); PHOSPHORUS 4.6 mg/dL (2.5-4.9); POTASSIUM 4.7 mmol/L (3.5-5.1); SODIUM SERUM 136 mmol/L (136-145); TOTAL PROTEIN, SERUM 6.9 g/dL (6.4-8.2); UREA NITROGEN, BLOOD 40 mg/dL (7-18)
[2020-08-20 07:47] LABS: ABG BASE EXCESS -0.8 mmol/L; ABG OXYGEN SATURATION 98.4 % (92.0-98.5); ABG PCO2 50.2 mmHg (35.0-45.0); ABG PH 7.325 (7.350-7.450); ABG PO2 163.8 mmHg (75.0-100.0); AaDO2 34.7 mmHg; COHb 0.1 % (0.5-1.5); MetHb 0.4 % (0.0-1.5); O2Hb 97.9 % (94.0-97.0); SITE, ABG Right Radial; VENT MODE, BG 4L NC
--- NOTE | 2020-08-20 07:56 | NUR ---
patient in bed awake, watching television. hooked to monitor. VSS. will continue to monitor accordingly
[2020-08-20] MEDS: BLOOD SUGAR DIAGNOSTIC 1 EACH STRIP VI SCH ×4 (07:59→21:29)
[2020-08-20] MEDS: INSULIN REGULAR, HUMAN 100 UNIT/ML 3 ML VIAL SQ PRN ×3 (08:05→17:50)
--- NOTE | 2020-08-20 08:16 | NUR ---
PATIENT SERVED BREAKFAST, ATE 80%.
[2020-08-20] MEDS ORDERED: PANTOPRAZOLE 40 MG TABLET.DR PO ONE (08:25)
[2020-08-20] MEDS: PANTOPRAZOLE 40 MG TABLET.DR PO SCH (08:30)
[2020-08-20] MEDS ORDERED: DEXAMETHASONE SOD PHOSPHATE 4 MG/ML VIAL IV SCH (09:00)
[2020-08-20] MEDS: WARFARIN SODIUM 2.5 MG TABLET PO SCH (09:30)
[2020-08-20] MEDS ORDERED: FUROSEMIDE 40 MG/4 ML VIAL ONE ×2 (10:57→21:05)
[2020-08-20] MEDS ORDERED: DEXAMETHASONE SOD PHOSPHATE 10 MG/ML VIAL ONE (10:57)
[2020-08-20] MEDS ORDERED: ATORVASTATIN 40 MG TABLET ONE (10:57)
[2020-08-20] MEDS ORDERED: TAMSULOSIN 0.4 MG CAP.SR.24H ONE (10:58)
[2020-08-20] MEDS: ATORVASTATIN 40 MG TABLET PO SCH (11:00)
[2020-08-20] MEDS: METOPROLOL SUCCINATE 25 MG TAB.SR.24H PO SCH (11:00)
[2020-08-20] MEDS: FLUOXETINE HCL 20 MG CAPSULE PO SCH (11:00)
[2020-08-20] MEDS: AMLODIPINE BESYLATE 10 MG TABLET PO SCH (11:00)
[2020-08-20] MEDS: TAMSULOSIN 0.4 MG CAP.SR.24H PO SCH (11:00)
[2020-08-20] MEDS: FUROSEMIDE 40 MG/4 ML VIAL IV SCH ×2 (11:00→21:29)
--- NOTE | 2020-08-20 12:22 | NUR ---
PATIENT SERVED LUNCH. ATE 90%
[2020-08-20] MEDS: AZITHROMYCIN 500 MG in IV D5W 250 ML IV SCH (12:30)
--- NOTE | 2020-08-20 15:26 | NUR ---
PATIENT IN BED AWAKE, HOOKED TO MONITOR. VSS. WILL CONTINUE TO MONITOR ACCORDINGLY
[2020-08-20 16:44] LABS: CHOLESTEROL 114 mg/dL (<200); HDL CHOLESTEROL 59 mg/dL (40-60); LDL 47 mg/dL (0-99); TRIGLYCERIDES 56 mg/dL (30-150)
--- NOTE | 2020-08-20 17:12 | NUR ---
PATIENT SERVED DINNER. ATE 90%
--- NOTE | 2020-08-20 18:45 | NUR ---
PATIENT IN BED AWAKE, WATCHING TELEVISION. HOOKED TO MONITOR. VSS. WILL CONTINUE TO MONITOR ACCORDINGLY
--- NOTE | 2020-08-20 19:22 | NUR ---
REPORT GIVEN TO YULIANA ÁLVAREZ FOR EUGENE
--- NOTE | 2020-08-20 19:47 | NUR ---
PT IN BED RESTING COMFORTABLY SITTING UP WATCHING TV, NO COMPAINT OF PAIN OR DISCOMFORT AT THE MOMENT, WILL CONTINUE TO MONITOR
[2020-08-20] MEDS: INSULIN GLARGINE, 100 UNIT/ML CARTRIDGE SQ SCH (21:29)
[2020-08-20] MEDS: *INSULIN REGULAR(HUMULIN R)HUM 100 UNIT/ML VIAL SQ PRN (21:29)
[2020-08-20 21:43] LABS: THYROID STIMULATING HORMONE 1.914 uIU/mL (0.358-3.74)
--- NOTE | 2020-08-21 03:54 | NUR ---
PT REMAINS IN BED, SLEEPING, RESTING COMFORTABLY NO APPARENT PAIN OR DISCOMFORT
[2020-08-21 05:40] LABS: BASOPHILS # (AUTO) 0.1 /CMM (0.0-0.2); BASOPHILS % (AUTO) 0.6 % (0.0-2.0); HEMATOCRIT 32 % (39-51); HEMOGLOBIN 10.4 g/dL (13.5-17.5); LYMPHOCYTES # (AUTO) 0.3 /CMM (0.8-4.8); LYMPHOCYTES % (AUTO) 2.9 % (20.0-44.0); MEAN CORPUSCULAR HGB CONC 33 g/dl (31.0-36.0); MEAN CORPUSCULAR VOLUME 89 fL (80-96); MONOCYTES # (AUTO) 0.7 /CMM (0.1-1.30); MONOCYTES % (AUTO) 6.3 % (2.0-12.0); NEUTROPHILS % (AUTO) 90.2 % (43.0-81.0); PLATELET COUNT (AUTO) 239 /CMM (150-450); RED BLOOD CELL COUNT(AUTO) 3.61 MIL/uL (4.5-6.0)
[2020-08-21 06:01] LABS: ALANINE AMINOTRANSFERASE 17 U/L (12-78); ALKALINE PHOSPHATASE 93 U/L (46-116); ASPARTATE AMINOTRANSFERASE 14 U/L (15-37); BILIRUBIN,TOTAL 0.5 mg/dL (0.2-1.0); CALCIUM, SERUM 9.2 mg/dL (8.5-10.1); CARBON DIOXIDE 29 mmol/L (21-32); CHLORIDE 97 mmol/L (98-107); CREATININE 1.6 mg/dL (0.6-1.3); GLUCOSE 272 mg/dL (74-106); MAGNESIUM 2.1 mg/dL (1.8-2.4); PHOSPHORUS 3.8 mg/dL (2.5-4.9); POTASSIUM 4.2 mmol/L (3.5-5.1); SODIUM SERUM 135 mmol/L (136-145); UREA NITROGEN, BLOOD 44 mg/dL (7-18)
[2020-08-21] MEDS: PANTOPRAZOLE 40 MG TABLET.DR PO SCH (07:30)
--- NOTE | 2020-08-21 07:35 | NUR ---
report given to re wolf for evelin
--- NOTE | 2020-08-21 07:36 | NUR ---
Recieved report from craft superintendent possible trasfer to sniff covid negative .
[2020-08-21] MEDS: BLOOD SUGAR DIAGNOSTIC 1 EACH STRIP VI SCH ×4 (08:30→21:30)
--- NOTE | 2020-08-21 09:00 | NUR ---
Patient awake alert watching TV non distress accucheck done with coverage ,oral meds see Mar patient requesting for food tray given .
[2020-08-21] MEDS ORDERED: INSULIN REGULAR, HUMAN 100 UNIT/ML 10 ML VIAL ONE (09:12)
[2020-08-21] MEDS ORDERED: TAMSULOSIN 0.4 MG CAP.SR.24H ONE (09:12)
[2020-08-21] MEDS ORDERED: FUROSEMIDE 40 MG TABLET ONE (09:14)
[2020-08-21] MEDS ORDERED: PANTOPRAZOLE 40 MG TABLET.DR PO ONE (09:14)
[2020-08-21] MEDS ORDERED: ATORVASTATIN 40 MG TABLET ONE (09:14)
[2020-08-21] MEDS: INSULIN REGULAR, HUMAN 100 UNIT/ML 3 ML VIAL SQ PRN ×3 (09:22→17:09)
[2020-08-21] MEDS: TAMSULOSIN 0.4 MG CAP.SR.24H PO SCH (09:31)
[2020-08-21] MEDS: ATORVASTATIN 40 MG TABLET PO SCH (09:31)
[2020-08-21] MEDS: FLUOXETINE HCL 20 MG CAPSULE PO SCH (09:32)
[2020-08-21] MEDS: AMLODIPINE BESYLATE 10 MG TABLET PO SCH (09:32)
[2020-08-21] MEDS: METOPROLOL SUCCINATE 25 MG TAB.SR.24H PO SCH (09:33)
[2020-08-21] MEDS: WARFARIN SODIUM 2.5 MG TABLET PO SCH (09:36)
[2020-08-21] MEDS ORDERED: FUROSEMIDE 40 MG/4 ML VIAL ONE ×2 (09:38→21:03)
[2020-08-21] MEDS: FUROSEMIDE 40 MG/4 ML VIAL IV SCH ×2 (09:53→21:30)
--- NOTE | 2020-08-21 10:00 | NUR ---
patient awake alert patient deneis pain @ this time noted patient on O2 @ 2L sating 99 ,recheck for Ra he desat to 92 RA with excertion patient continue on oxygen @ 2L .
[2020-08-21 10:01] LABS: CALCIUM, SERUM 9.2 mg/dL (8.5-10.1); CARBON DIOXIDE 25 mmol/L (21-32); CHLORIDE 97 mmol/L (98-107); CREATININE 1.5 mg/dL (0.6-1.3); GLUCOSE 261 mg/dL (74-106); POTASSIUM 4.4 mmol/L (3.5-5.1); SODIUM SERUM 135 mmol/L (136-145); UREA NITROGEN, BLOOD 44 mg/dL (7-18)
[2020-08-21] MEDS: AZITHROMYCIN 500 MG in IV D5W 250 ML IV SCH (10:09)
[2020-08-21] MEDS ORDERED: BUME1TAB8 PO (11:50)
[2020-08-21] MEDS ORDERED: BUMETANIDE (1 MG) 1 MG TABLET PO STA (12:26)
[2020-08-21] MEDS ORDERED: BUMETANIDE (1 MG) 1 MG TABLET ONE (12:35)
--- NOTE | 2020-08-21 13:26 | NUR ---
BAY BOWEN BATCH TANK CONTROLLER [phone] pt will dc to [facility] [address] [place] [address] [phone]
--- NOTE | 2020-08-21 14:34 | NUR ---
Place call to [phone]
--- NOTE | 2020-08-21 14:58 | NUR ---
Milena called wants payment form for Biariatric bed given info no ETa @ this time ( director of primary care Steve [phone] provided credit card number ok with patient 25 dollors and 81 cents .
--- NOTE | 2020-08-21 16:18 | NUR ---
Awaiting call from Marlee HUBBARD .
--- NOTE | 2020-08-21 17:52 | NUR ---
Patient awake alert non distress noted able to turn to side with asssitance noted redness to coccyc area and abdomen fold keep patient clean and dry and comfortable .
--- NOTE | 2020-08-21 19:10 | NUR ---
Called report to [facility] room [phone] report given to Cuate BLAKE .
[2020-08-21] MEDS: INSULIN GLARGINE, 100 UNIT/ML CARTRIDGE SQ SCH (21:33)
--- NOTE | 2020-08-21 22:59 | NUR ---
REPORT GIVEN TO [facility] TEAM FOR EUGENE. AND TRANSFERING RESPONSIBILTIES.
[2020-08-21 23:21] VITALS: BP 119/74
== END 2020-08-21 19:59 | DRG 291 ==
LOC: ER 09:26 → TRANSITION 16:04
PROVIDERS: ADMIT Internal Medicine; ATTEND Internal Medicine
DX: I13.0 Hypertensive heart and chronic kidney disease with heart failure and stage 1 through stage 4 chronic kidney disease, or unspecified chronic kidney disease (principal); I50.43 Acute on chronic combined systolic (congestive) and diastolic (congestive) heart failure; J96.01 Acute respiratory failure with hypoxia; N17.0 Acute kidney failure with tubular necrosis; Z68.42 Body mass index [BMI] 45.0-49.9, adult; I48.20 Chronic atrial fibrillation, unspecified; E11.22 Type 2 diabetes mellitus with diabetic chronic kidney disease; E11.51 Type 2 diabetes mellitus with diabetic peripheral angiopathy without gangrene; I25.10 Atherosclerotic heart disease of native coronary artery without angina pectoris; K21.9 Gastro-esophageal reflux disease without esophagitis; N18.9 Chronic kidney disease, unspecified; Z79.4 Long term (current) use of insulin; Z79.82 Long term (current) use of aspirin; Z79.899 Other long term (current) drug therapy; E78.5 Hyperlipidemia, unspecified; E11.42 Type 2 diabetes mellitus with diabetic polyneuropathy; Z79.01 Long term (current) use of anticoagulants; N40.0 Benign prostatic hyperplasia without lower urinary tract symptoms; L89.309 Pressure ulcer of unspecified buttock, unspecified stage; Z89.411 Acquired absence of right great toe; Z89.422 Acquired absence of other left toe(s); J44.9 Chronic obstructive pulmonary disease, unspecified
CPT/HCPCS: 36415; 36600; 71045-TC; 80048-TC; 80053-TC; 80061-TC; 82550-TC; 82728-TC; 82803-TC; 82962-TC; 83605-TC; 83615-TC; 83735-TC; 83880; 84100-TC; 84443-TC; 84484-TC; 85025-TC; 85378-TC; 85610-TC; 85730-TC; 86140-TC; 87040-TC; 87081-TC; C9803; G0378; J0456; J1100; J1650; J1815; J1940; J1956; J7060; U0003